=== PATIENT | female | born 1935 | race American Indian/Alaskan Native ===

== ENCOUNTER 2016-06-29 21:16 | Emergency (ER) | payer MEDICARE ==
--- NOTE | 2016-06-30 00:09 | Emergency Department Report ---
ED General Adult HPI - General Chief complaint: Nausea/Vomiting/Diarrhea Stated complaint: SORE THROAT Time Seen by Provider: 06/29/16 23:46 Source: patient, EMS, RN notes reviewed, old records reviewed Mode of arrival: Stretcher Limitations: Altered Mental Status, Physical Limitation - History of Present Illness Initial comments: Patient is a 81-year-old female with history of hypertension, diabetes, end- stage renal disease on dialysis Tuesday with last dialysis on Tuesday presenting today because of nausea vomiting. Patient states it started at 4 PM soon after eating doesn't had multiple bouts of nonbloody nonbilious emesis. Did have some blood tinged emesis towards the end. Had no associated abdominal pain, diarrhea but did have some nasal congestion and sore throat. No associated fevers or chills. Severity scale (0 -10): 0 - Related Data Home Medications Medication Instructions Recorded Confirmed Last Taken Apixaban [Eliquis] 5 mg PO DAILY 04/20/16 06/29/16 06/29/16 Carvedilol 6.25 mg PO BID 04/20/16 06/29/16 06/29/16 Cinacalcet HCl [Sensipar] 30 mg PO DAILY 04/20/16 06/29/16 06/29/16 Clopidogrel Bisulfate [Clopidogrel] 75 mg PO DAILY 04/20/16 06/29/16 06/29/16 Gabapentin [Neurontin] 300 mg PO DAILY 04/20/16 06/29/16 06/29/16 Insulin Glargine [Lantus VIAL] 15 units SC DAILY 04/20/16 06/29/16 06/29/16 Metoprolol Tartrate 25 mg PO DAILY 04/20/16 06/29/16 06/29/16 Simvastatin 40 mg PO QHS 04/20/16 06/29/16 06/29/16 Vitamin B Comp and C/FA/Zn Cit 1 tab PO DAILY 04/20/16 06/29/16 06/29/16 [Dialyvite 800-Zinc 15 mg Tab] Sitagliptin Phosphate [Januvia] 25 mg PO QDAY 05/20/16 06/29/16 06/29/16 oxyCODONE 5 mg PO PRN 05/24/16 06/29/16 06/29/16 Previous Rx's Medication Instructions Recorded Last Taken Type HYDROcodone/APAP 7.5-325 [Badin 1 each PO Q6HR PRN #60 tablet 06/04/16 06/29/16 Rx 7.5/325] Lisinopril [Zestril TAB] 2.5 mg PO QDAY #30 tab 06/04/16 06/29/16 Rx Allergies Allergy/AdvReac Type Severity Reaction Status Date / Time No Known Allergies Allergy Verified 06/20/16 19:58 ED Review of Systems ROS: Stated complaint: SORE THROAT Other details as noted in HPI Comment: All other systems reviewed and negative Constitutional: denies: chills, fever ENT: congestion Respiratory: denies: shortness of breath Cardiovascular: denies: chest pain Gastrointestinal: nausea, vomiting. denies: abdominal pain Skin: denies: rash Neurological: denies: headache, weakness ED Past Medical Hx - Past Medical History Previous Medical History?: Yes Hx Hypertension: Yes (CHF) Hx Heart Attack/AMI: Yes (2005. 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, hypercholesterolemia, chronic pain - Surgical History Past Surgical History?: Yes Hx Coronary Stent: Yes (3 stents, PTCA) Hx Pacemaker: No - Social History Smoking Status: Unknown if ever smoked Substance Use Type: Non Opiate Pain, Prescribed - Medications Home Medications: Home Medications Medication Instructions Recorded Confirmed Last Taken Type Apixaban [Eliquis] 5 mg PO DAILY 04/20/16 06/29/16 06/29/16 History Carvedilol 6.25 mg PO BID 04/20/16 06/29/16 06/29/16 History Cinacalcet HCl [Sensipar] 30 mg PO DAILY 04/20/16 06/29/16 06/29/16 History Clopidogrel Bisulfate [Clopidogrel] 75 mg PO DAILY 04/20/16 06/29/16 06/29/16 History Gabapentin [Neurontin] 300 mg PO DAILY 04/20/16 06/29/16 06/29/16 History Insulin Glargine [Lantus VIAL] 15 units SC DAILY 04/20/16 06/29/16 06/29/16 History Metoprolol Tartrate 25 mg PO DAILY 04/20/16 06/29/16 06/29/16 History Simvastatin 40 mg PO QHS 04/20/16 06/29/16 06/29/16 History Vitamin B Comp and C/FA/Zn Cit 1 tab PO DAILY 04/20/16 06/29/16 06/29/16 History [Dialyvite 800-Zinc 15 mg Tab] Sitagliptin Phosphate [Januvia] 25 mg PO QDAY 05/20/16 06/29/16 06/29/16 History oxyCODONE 5 mg PO PRN 05/24/16 06/29/16 06/29/16 History HYDROcodone/APAP 7.5-325 [Badin 1 each PO Q6HR PRN #60 tablet 06/04/16 06/29/16 06/29/16 Rx 7.5/325] Lisinopril [Zestril TAB] 2.5 mg PO QDAY #30 tab 06/04/16 06/29/16 06/29/16 Rx ED Physical Exam - General Limitations: No Limitations, Physical Limitation - Head Head exam: Present: atraumatic - Eye Eye exam: Present: normal appearance - ENT ENT exam: Present: normal exam, mucous membranes dry, other (pharyngeal erythema , no tonsillar exudates) - Respiratory Respiratory exam: Present: normal lung sounds bilaterally. Absent: respiratory distress - Cardiovascular Cardiovascular Exam: Present: regular rate - GI/Abdominal GI/Abdominal exam: Present: soft. Absent: distended, tenderness - Extremities Exam Extremities exam: Present: other (bilateral feet with multiple decubitus ulcers , appeared to be chronic, no signs of acute infection now significant tenderness , no discharge, no surrounding erythema, no fluctuance) - Neurological Exam Neurological exam: Present: alert - Psychiatric Psychiatric exam: Present: normal affect - Skin Skin exam: Absent: rash ED Course Vital Signs 06/29/16 06/29/16 06/30/16 23:23 23:25 02:26 Temperature 97.8 F 97.8 F Pulse Rate 100 H 100 H Respiratory 20 20 18 Rate Blood Pressure 147/70 Blood Pressure 147/70 [Left] O2 Sat by Pulse 100 100 Oximetry 06/30/16 02:52 Temperature 97.7 F Pulse Rate 89 Respiratory 18 Rate Blood Pressure Blood Pressure 142/80 [Left] O2 Sat by Pulse 100 Oximetry ED Medical Decision Making - Lab Data Result diagrams: 06/30/16 00:17 06/30/16 00:17 - Medical Decision Making Symptoms and exam are most consistent with gastritis versus viral syndrome, however given the patient's comorbidities will do lab work to rule out another etiology as well as EKG Chest x-ray shows no acute infiltrate, appears better than prior x-ray EKG shows sinus rhythm with first-degree AV block, no ST T changes, narrow QRS Labs show a elevated white count, this may be due to a viral infection as there is no clear bacterial infection, troponin is elevated however as the patient is on dialysis and the troponin is better than prior it is unlikely that the patient is developing new troponin elevation. Phosphate is elevated, however patient is expected to have dialysis later today which showed lower the phosphorus level. Hemoglobin is improved compared to prior lab that was during recent hospitalization. Patient is complaining of bilateral foot pain, however no clear new infection. Patient states that she had been treated on antibiotics and recently been stopped. States that this pain is chronic and has not changed. Given the only symptoms are rhinorrhea, vomiting, sore throat is suggestive of a viral syndrome. Patient's heart rate was reassessed at 2:10 AM and was 90. Well sent patient back to the longterm as she does not meet any criteria for admission to the hospital at this time. Critical care attestation.: If time is entered above; I have spent that time in minutes in the direct care of this critically ill patient, excluding procedure time. ED Disposition Clinical Impression: Vomiting Qualifiers: Vomiting type: unspecified Vomiting Intractability: non-intractable Nausea presence: without nausea Qualified Code(s): R11.11 - Vomiting without nausea Disposition: DC/TX ANOTHER TYPE HEALTHCARE Is pt being admited?: No Condition: Stable Instructions: Viral Syndrome (ED), Acute Nausea and Vomiting (ED) Additional Instructions: Please follow up with the primary care doctor. If symptoms significantly worsen the develop any new symptoms please return back to the hospital. Referrals: PRIMARY CARE, [Primary Care Provider] - 3-5 Days Time of Disposition: 02:23
[2016-06-30 00:31] LABS: Hematocrit 29.4 % (30.3-42.9); Hemoglobin 9.3 gm/dl (10.1-14.3); Mean Corpuscular HGB Conc 32 % (30-34); Mean Corpuscular Hemoglobin 29 pg (28-32); Mean Corpuscular Volume 92 fl (79-97); Platelet Count 223 K/mm3 (140-440); Red Blood Count 3.18 M/mm3 (3.65-5.03)
[2016-06-30 00:38] LABS: Red Cell Distribution Width 22.8 % (13.2-15.2)
[2016-06-30 00:54] LABS: BUN/Creatinine Ratio 7.27; Calcium 8.5 mg/dL (8.4-10.2); Chloride 92.4 mmol/L (98-107); Magnesium 2.2 mg/dL (1.7-2.3); Phosphorous 5.8 mg/dL (2.5-4.5)
[2016-06-30] MEDS ORDERED: TYLENOL PO ONE (02:13)
[2016-06-30 02:53] VITALS: BP 142/80
--- NOTE | 2016-06-30 09:41 | XRay Report ---
AP CHEST: HISTORY: Fever, leukocytosis. FINDINGS: Mild CHF or volume overload has resolved since 06/20/16. Cardiomegaly persists but the lungs are clear. There is no evidence for pneumonia or large pleural effusion. The bony structures are demineralized but intact. IMPRESSION: Cardiomegaly. Lungs clear.
== END 2016-06-30 03:31 | disposition other institution (70) ==
LOC: ED 21:16
DX: R11.11 Vomiting without nausea (principal); I25.2 Old myocardial infarction; I13.2 Hypertensive heart and chronic kidney disease with heart failure and with stage 5 chronic kidney disease, or end stage renal disease; E11.22 Type 2 diabetes mellitus with diabetic chronic kidney disease; N18.6 End stage renal disease; I50.9 Heart failure, unspecified; E11.40 Type 2 diabetes mellitus with diabetic neuropathy, unspecified; E78.00 Pure hypercholesterolemia, unspecified; G89.29 Other chronic pain; Z79.4 Long term (current) use of insulin; Z99.2 Dependence on renal dialysis
CPT/HCPCS: 36415; 71010; 80048; 80061; 83735; 84100; 84484; 85027; 93005; 93010

== ENCOUNTER 2016-07-26 08:04 | Inpatient (IN) | payer MEDICARE ==
[2016-07-26] MEDS ORDERED: KEPPRA 1,000 MG/NS 0.75% 100ML 1,000 MG/100 ML BAG IV ONE ×2 (09:27→09:29)
[2016-07-26 09:32] LABS: Basophils % (Auto) 0.6 % (0.0-1.8); Eosinophils % (Auto) 2.4 % (0.0-4.3); Hematocrit 32.1 % (30.3-42.9); Hemoglobin 9.8 gm/dl (10.1-14.3); Mean Corpuscular HGB Conc 31 % (30-34); Mean Corpuscular Hemoglobin 27 pg (28-32); Mean Corpuscular Volume 89 fl (79-97); Platelet Count 258 K/mm3 (140-440); Red Blood Count 3.59 M/mm3 (3.65-5.03); White Blood Count 15.9 K/mm3 (4.5-11.0)
[2016-07-26 09:37] LABS: Red Cell Distribution Width 20.2 % (13.2-15.2)
[2016-07-26 09:54] LABS: Alanine Aminotransferase 12 units/L (7-56); Albumin 3.4 g/dL (3.9-5); Albumin/Globulin Ratio 0.9 %; Alkaline Phosphatase 79 units/L (35-129); Anion Gap 22 mmol/L; BUN/Creatinine Ratio 6.85; Bilirubin,Total 0.5 mg/dL (0.1-1.2); Blood Urea Nitrogen 37 mg/dL (7-17); Calcium 11.6 mg/dL (8.4-10.2); Carbon Dioxide 28 mmol/L (22-30); Chloride 87.2 mmol/L (98-107); Glucose 112 mg/dL (65-100); Magnesium 2.3 mg/dL (1.7-2.3); Potassium 5.3 mmol/L (3.6-5.0); Sodium 132 mmol/L (137-145); Total Protein 7.3 g/dL (6.3-8.2)
[2016-07-26] MEDS ORDERED: ATIVAN ONE (09:55)
[2016-07-26] MEDS ORDERED: ATIVAN IV ONE (09:55)
--- NOTE | 2016-07-26 09:55 | Emergency Department Report ---
HPI - General Chief Complaint: Altered Mental Status Time Seen by Provider: 07/26/16 09:27 - HPI HPI: Chief complaint: Altered mental status HPI: Patient is a 81-year-old female resident of the [facility] and has a history of end-stage renal disease on hemodialysis, congestive heart failure, severe atherosclerosis status post bypass surgery 2 coronary arteries as well as coronary artery stents and stenting to her lower extremities. Patient has severe peripheral vascular disease with chronic ulcerations and necrosis to her feet. Patient is type II diabetic with a history of hypertension. Patient has had a history of CVA but no known history of seizures. According to [facility] patient was acutely altered this morning. After her arrival to the emergency department the nursing staff noticed some focal seizure-like activity in her left upper extremity. Patient is unable to contribute at all to the history as she is unresponsive. Patient's last dialysis was on Tuesday and she was due for dialysis today. Patient had a fentanyl patch on which was removed by EMS. Mode of arrival: EMS Source: The nursing notes, old chart and notes from the [facility] Began: Unclear Unable to elicit any further information from the patient ED Past Medical Hx - Past Medical History Previous Medical History?: Yes Hx Hypertension: Yes (CHF) Hx Heart Attack/AMI: Yes (2005. 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, hypercholesterolemia, chronic pain - Surgical History Hx Coronary Stent: Yes (3 stents, PTCA) Hx Pacemaker: No - Social History Smoking Status: Unknown if ever smoked - Medications Home Medications: Home Medications Medication Instructions Recorded Confirmed Last Taken Type Apixaban [Eliquis] 5 mg PO DAILY 04/20/16 06/29/16 06/29/16 History Carvedilol 6.25 mg PO BID 04/20/16 06/29/16 06/29/16 History Cinacalcet HCl [Sensipar] 30 mg PO DAILY 04/20/16 06/29/16 06/29/16 History Clopidogrel Bisulfate [Clopidogrel] 75 mg PO DAILY 04/20/16 06/29/16 06/29/16 History Gabapentin [Neurontin] 300 mg PO DAILY 04/20/16 06/29/16 06/29/16 History Insulin Glargine [Lantus VIAL] 15 units SC DAILY 04/20/16 06/29/16 06/29/16 History Metoprolol Tartrate 25 mg PO DAILY 04/20/16 06/29/16 06/29/16 History Simvastatin 40 mg PO QHS 04/20/16 06/29/16 06/29/16 History Vitamin B Comp and C/FA/Zn Cit 1 tab PO DAILY 04/20/16 06/29/16 06/29/16 History [Dialyvite 800-Zinc 15 mg Tab] Sitagliptin Phosphate [Januvia] 25 mg PO QDAY 05/20/16 06/29/16 06/29/16 History oxyCODONE 5 mg PO PRN 05/24/16 06/29/16 06/29/16 History HYDROcodone/APAP 7.5-325 [[place] 1 each PO Q6HR PRN #60 tablet 06/04/16 06/29/16 06/29/16 Rx 7.5/325] Lisinopril [Zestril TAB] 2.5 mg PO QDAY #30 tab 06/04/16 06/29/16 06/29/16 Rx ED Review of Systems ROS: Stated complaint: AMS Other details as noted in HPI Comment: Unobtainable due to pts medical conditions (patient unresponsive) Physical Exam - Physical Exam Vital Signs: Vital Signs 07/26/16 08:33 Temperature 98 F Pulse Rate 89 Respiratory 17 Rate Blood Pressure 121/49 O2 Sat by Pulse 91 Oximetry Physical Exam: GENERAL: The patient is an elderly chronically ill-appearing -[place] female who is unresponsive. HEENT: Normocephalic. Atraumatic. Patient has moist mucous membranes. NECK: Supple. No meningitic signs are noted. There is no adenopathy noted. CHEST/LUNGS: Bilateral congestion. There is no respiratory distress noted. HEART/CARDIOVASCULAR: Regular. There is no tachycardia. There is no gallop rub or murmur. ABDOMEN: Abdomen is soft, nontender. Patient has normal bowel sounds. There is no abdominal distention. SKIN: Patient has dressings to her bilateral lower legs and heels which were not removed. Left great toe is necrotic and appears chronic. Patient also has a dressing to her left ng. NEURO: The patient's eyes are open and she blinks to perceived threat but does not respond to verbal or tactile stimulation. Patient's left arm is having intermittent involuntary spasms that could quite possibly be focal seizure activity. There is no eye deviation noted. MUSCULOSKELETAL: Chronic peripheral vascular disease changes with necrosis to the left great toe. ED Course Vital Signs 07/26/16 08:33 Temperature 98 F Pulse Rate 89 Respiratory 17 Rate Blood Pressure 121/49 O2 Sat by Pulse 91 Oximetry - Reevaluation(s) Reevaluation #1: 07/26/16 09:56 Patient given 1 g of Keppra and awaiting CT results. 07/26/16 patient was given 1 mg IV Ativan and seizures stopped. 07/26/[address] Chahal who will arrange for dialysis. ED Medical Decision Making - Lab Data Result diagrams: 07/26/16 08:39 07/26/16 08:39 Laboratory Tests 07/26/16 08:39 Calcium 11.6 H Albumin 3.4 L - EKG Data -: EKG Interpreted by Me EKG shows normal: sinus rhythm (with a first-degree AV block) Rate: normal (88) - EKG Data When compared to previous EKG there are: no significant change Interpretation: no acute changes, other (left anterior fascicular block) - Radiology Data Radiology results: report reviewed (chest x-ray shows cardiomegaly and congestive heart failure.) Critical care attestation.: If time is entered above; I have spent that time in minutes in the direct care of this critically ill patient, excluding procedure time. ED Disposition Clinical Impression: Acute on chronic systolic CHF (congestive heart failure), Acute on chronic renal failure, Hyperkalemia, New onset seizure Disposition: OP ADMITTED IP TO THIS HOSP Is pt being admited?: Yes Does the pt Need Aspirin: Yes Condition: Serious Referrals: PRIMARY CARE,MD [Primary Care Provider] - 3-5 Days Time of Disposition: 11:35 (admit to the hospitalist)
--- NOTE | 2016-07-26 10:02 | XRay Report ---
PORTABLE CHEST INDICATION: Nonproductive cough. COMPARISON: 06/30/2016 FINDINGS: Portable, frontal chest radiograph again demonstrates mild to moderate cardiomegaly, dense aortic atherosclerotic calcifications, left distal subclavian/axillary stents and demineralized bones with few degenerative changes. Mild increased congestive pulmonary haziness now suspected, more so in the right upper lobe/suprahilar as also towards the lung bases with subtle bilateral pleural effusions partly obscuring the hemidiaphragms. EKG leads. CONCLUSION: Interval radiographic worsening with CHF suspected, as described. Few other stable findings, as above. Please correlate. Thank you for the opportunity to participate in this patient's care.
--- NOTE | 2016-07-26 10:24 | Cat Scan Report ---
CT HEAD WITHOUT CONTRAST: HISTORY: Altered mental status. No comparison. Mild diffuse volume loss and mild nonspecific chronic white matter changes are identified. A chronic focal infarct in the left arias radiata measures 1.3 x 0.3 cm in axial plane. There is a second area of decreased attenuation in the right occipital lobe measuring 1.9 x 1.1 cm in axial plane consistent with a chronic cortical infarct. There is no evidence for hemorrhage, mass, hydrocephalus or extra-axial fluid collection. The mastoid air cells and visualized portions of the sinuses are normal. IMPRESSION: No acute process identified. Chronic findings as outlined above. If further evaluation is needed, MRI could be obtained.
--- NOTE | 2016-07-26 10:35 | Admit Criteria Form ---
Admission Criteria Documentation: HEART FAILURE Clinical Indications for Admission to Inpatient Care (Place 'X' for any and all applicable criteria): Admission is indicated by ANY ONE of the following(1)(2)(3)(4): [ ]I. Severe electrolyte abnormalities requiring inpatient care(9) [ ]II. Hemodynamic instability [ ]III. Anasarca [ ]IV. Acute cardiac ischemia causing or associated with failure (Also use Angina or Myocardial Infarction as appropriate) [ ]V. Cardiac arrhythmias of immediate concern [ ]. Precipitating cause for acute decompensation (eg, pneumonia, pulmonary embolism) requires inpatient care [ ]VII. Pulmonary edema that is very severe (eg, mechanical ventilation needed, imminent or likely, need for 100% oxygen to keep oxygen saturation above 90%) [X]VIII. Inpatient admission required rather than observation care (Also use Heart Failure: Observation Care as appropriate) because of ANY ONE of the following: [ ]a) Pulmonary edema that is severe or worsening as indicated by ALL of the following: [ ]i) New need for oxygen therapy to keep oxygen saturation above 90% (or increased FiO2 need from baseline) [ ]ii) Has not improved sufficiently with emergency department or observation care IV diuretics or other heart failure treatments[C] [ ]b) Cognitive impairment that is severe or persistent [ ]c) Increased creatinine (new on laboratory test) with reduction of more than 50% in estimated glomerular filtration rate from baseline. [ ]d) Acute renal insufficiency (progressively (ongoing) rising creatinine (known from past laboratory test) with reduction of more than 25% in estimated glomerular filtration rate from baseline) [ ]e) Acute peripheral ischemia (eg, pulseless, cool, mottled, or cyanotic extremity) [ ]f) Acute renal failure [X]g) Supplemental O2 or respiratory treatment for >24 hr that are performable only in acute inpatient setting [ ]h) Pulmonary artery catheter monitoring [X]i) Other condition, treatment or monitoring requiring inpatient admission [ ]IX. Contraindications and/or Inappropriate clinical situations for Observational Care in patients with Heart Failure, when ANY ONE of the following is required: [ ]a) Patient with High risk of cardiac embolism (e.g, patients with previous cardiac embolism, LVEF < 40%, age >75 and patients with prosthetic valve) 18 [ ]b) Patient with Moderate risk including DM patient, CAD and patient aged 65-75 [ ]c) Patient with any change in cardiac biomarker especially troponin should be managed as high risk in an inpatient setting 19 [ ]d) Physician judgement irrespective of ECG and other diagnostic findings 20 [ ]e) Patients with hyponatremia have high risk for mortality and require more extensive care and length of stay 21 [ ]f) Need for large volume diuresis 21 [ ]g) Presence of renal insufficiency or hypotension limiting speed of diuresis 21 [ ]h) Acute cardiac Ischemia in the elderly 21 [ ]i) Patients with a 30 day risk of mortality based on a multidimensional prognostic index (MPI) [J,]21 [ ]X. General contraindications and/or Inappropriate clinical situations for Observational Care in patients with Heart Failure, when ANY ONE of the following is required: [ ]a) Prediction of prolongation of LOS based on ANY ONE of the following may be considered as a contraindication for observational care 2, 3, 4, 5, 6, 7, 8 , 9, 10, 11 [ ]i) Age > 65 yrs. [ ]ii) Patient arriving by ambulance [ ]iii) Patient with high acuity [ ]iv) Patient requiring vital sign monitoring [ ]v) Patient on IV medication [ ]b) Systolic blood pressures 180mmHg 3,12 [ ]c) Patient with altered mental status including delirium and other alteration of consciousness, (3) [ ]d) Patient whose discharge disposition will be to a senior living home or rehabilitation home should not be managed in Emergency Department Observation Unit. CMS rule requires 3 days hospital stay before such placement.3,13 [ ]e) Patient with failure to thrive due to broad array of etiologies 3,16,17 [ ]f) Inability to ambulate 3,14 Extended stay beyond goal length of stay may be needed for(1)(3)(21)(25): [ ]a) Cardiac ischemia, confirmed or suspected as precipitant [ ]b) Cardiogenic shock or refractory pulmonary edema [ ]c) Acute kidney injury or renal failure [ ]d) Respiratory failure (eg, need for noninvasive or invasive mechanical ventilation) (23) [ ]e) Concomitant pneumonia or significant electrolyte abnormality (eg, severe hyponatremia) [ ]f) Newly diagnosed (new onset) atrial fibrillation [ ]g) Stage IV chronic kidney disease (estimated glomerular filtration rate of less than 30 mL/min/1.73m2 (0.50 mL/sec/1.73m2), and not previously on chronic dialysis The original [facility] content created by [facility] has been revised. The portions of the content which have been revised are identified through the use of italic text or in bold, and [facility] has neither reviewed nor approved the modified material. All other unmodified content is copyright [facility]. Please see references footnoted in the original [facility] edition 2016 Admission Criteria Met: Yes
--- NOTE | 2016-07-26 12:12 | Consultation ---
History of Present Illness - Reason for Consult Consult date: 07/26/16 end stage renal disease, hyperkalemia - History of Present Illness patient with h/o ESRD on HD every MWF, last treatment is unknown, she is poor historian, history obtained from chart, she was sent from SNF for altered mental status with possible focal seizure upon arrival to ED. CXR was significant for congestion and currently on O2 supplement. renal consult was requested for HD management Past History Past Medical History: diabetes, dialysis, ESRD, hypertension, renal failure Medications and Allergies Allergies Allergy/AdvReac Type Severity Reaction Status Date / Time No Known Allergies Allergy Verified 06/20/16 19:58 Home Medications Medication Instructions Recorded Confirmed Last Taken Type Apixaban [Eliquis] 5 mg PO DAILY 04/20/16 06/29/16 06/29/16 History Carvedilol 6.25 mg PO BID 04/20/16 06/29/16 06/29/16 History Cinacalcet HCl [Sensipar] 30 mg PO DAILY 04/20/16 06/29/16 06/29/16 History Clopidogrel Bisulfate [Clopidogrel] 75 mg PO DAILY 04/20/16 06/29/16 06/29/16 History Gabapentin [Neurontin] 300 mg PO DAILY 04/20/16 06/29/16 06/29/16 History Insulin Glargine [Lantus VIAL] 15 units SC DAILY 04/20/16 06/29/16 06/29/16 History Metoprolol Tartrate 25 mg PO DAILY 04/20/16 06/29/16 06/29/16 History Simvastatin 40 mg PO QHS 04/20/16 06/29/16 06/29/16 History Vitamin B Comp and C/FA/Zn Cit 1 tab PO DAILY 04/20/16 06/29/16 06/29/16 History [Dialyvite 800-Zinc 15 mg Tab] Sitagliptin Phosphate [Januvia] 25 mg PO QDAY 05/20/16 06/29/16 06/29/16 History oxyCODONE 5 mg PO PRN 05/24/16 06/29/16 06/29/16 History HYDROcodone/APAP 7.5-325 [[place] 1 each PO Q6HR PRN #60 tablet 06/04/16 06/29/16 06/29/16 Rx 7.5/325] Lisinopril [Zestril TAB] 2.5 mg PO QDAY #30 tab 06/04/16 06/29/16 06/29/16 Rx Review of Systems ROS unobtainable: due to mental status Exam - Vital Signs Vital signs: Vital Signs Pulse Ox 95 07/26/16 08:28 - General Appearance General appearance: cachectic EENT: ATNC, PERRL, mucous membranes dry Neck: Present: neck supple Respiratory: Rales, [place] Heart: regular, S1S2 Gastrointestinal: Present: normoactive bowel sounds. Absent: tenderness, distended, masses Integumentary: no rash, warm and dry Neurologic: other (does not follow commands) Musculoskeletal: Present: other (no edema in BLE, R AVF with + thrill and bruit) Psychiatric: other (does not answer questions) Results - Lab Results 07/26/16 08:39 07/26/16 08:39 Most recent lab results Calcium 11.6 mg/dL (8.4-10.2) H 07/26/16 08:39 Magnesium 2.3 mg/dL (1.7-2.3) 07/26/16 08:39 Assessment and Plan - Patient Problems (1) ESRD (end stage renal disease) on dialysis Current Visit: No Status: Acute Plan to address problem: HD today for clearance and volume removal UF goal 3-4 L as tolerated will assess HD needs daily strict I&O daily weights renally dose meds (2) Altered mental status Current Visit: Yes Status: Acute Qualifiers: Altered mental status type: A Coma depth: C Coma timing: C Plan to address problem: CT head was negative for acute process on IV keppra (3) Hypo-osmolality and hyponatremia Current Visit: Yes Status: Acute Plan to address problem: secondary to renal failure and volume overload HD as above fluid restriction 1000 cc/day (4) Anemia in chronic kidney disease (CKD) Current Visit: No Status: Acute Plan to address problem: no indication for transfusion will check iron panel in AM (5) Hyperkalemia Current Visit: No Status: Acute Plan to address problem: HD as above
--- NOTE | 2016-07-26 12:16 | History and Physical Report ---
History of Present Illness Date of examination: 07/26/16 Date of admission: 07/26/16 Chief complaint: AMS History of present illness: The Patient is a 81-year-old [facility] with multiple medical problem was acutely noted to be altered this morning. After her arrival to the emergency department the nursing staff noticed some focal seizure -like activity in her left upper extremity. Patient is unable to contribute at all to the history as she is unresponsive. Patient's last dialysis was on Tuesday and she was due for dialysis today. Patient had a fentanyl patch on which was removed by EMS. In the ER CT head was unremarkable, given 1000mg of keppra. She will be admitted for further evaluation. Past medical History: h/o ESRD on Dialysis MWF, CHF, DM2, chf, MD s/p stent on 2005 and 2007, diabetic neuropathy, PVD, h/o CVA, CAD. Past surgical History: s/p PTCA on 2005 and 2007, CABG Social History: Lives at [facility], no h/o smoking, drinking and elicit drug abuse. Family History: Significant for CAD (mother), hypertension (Mother). Medications and Allergies Allergies Allergy/AdvReac Type Severity Reaction Status Date / Time No Known Allergies Allergy Verified 06/20/16 19:58 Home Medications Medication Instructions Recorded Confirmed Last Taken Type Apixaban [Eliquis] 5 mg PO DAILY 04/20/16 06/29/16 06/29/16 History Carvedilol 6.25 mg PO BID 04/20/16 06/29/16 06/29/16 History Cinacalcet HCl [Sensipar] 30 mg PO DAILY 04/20/16 06/29/16 06/29/16 History Clopidogrel Bisulfate [Clopidogrel] 75 mg PO DAILY 04/20/16 06/29/16 06/29/16 History Gabapentin [Neurontin] 300 mg PO DAILY 04/20/16 06/29/16 06/29/16 History Insulin Glargine [Lantus VIAL] 15 units SC DAILY 04/20/16 06/29/16 06/29/16 History Metoprolol Tartrate 25 mg PO DAILY 04/20/16 06/29/16 06/29/16 History Simvastatin 40 mg PO QHS 04/20/16 06/29/16 06/29/16 History Vitamin B Comp and C/FA/Zn Cit 1 tab PO DAILY 04/20/16 06/29/16 06/29/16 History [Dialyvite 800-Zinc 15 mg Tab] Sitagliptin Phosphate [Januvia] 25 mg PO QDAY 05/20/16 06/29/16 06/29/16 History oxyCODONE 5 mg PO PRN 05/24/16 06/29/16 06/29/16 History HYDROcodone/APAP 7.5-325 [[place] 1 each PO Q6HR PRN #60 tablet 06/04/16 06/29/16 06/29/16 Rx 7.5/325] Lisinopril [Zestril TAB] 2.5 mg PO QDAY #30 tab 06/04/16 06/29/16 06/29/16 Rx Review of Systems ROS unobtainable: due to mental status Exam - Physical Exam Narrative exam: GENERAL: This is an elderly female lying on bed appeared to be in no discomfort. HEENT: Normocephalic. Atraumatic. Extraocular motions are intact. No conjunctival congestion or icterus. Patient has dry mucous membranes. External auditory canal and nares patent bilaterally. NECK: Supple. Trachea midline. No JVD, thyromagaly or lymphadenopathy. CHEST/LUNGS: Clear to auscultated bilaterally. There is no respiratory distress noted, breathing nonlabored. No wheezes crackles or rhonchi. HEART/CARDIOVASCULAR: Regular in rate and rhythm. PMI at the apex. There is no gallop rub or murmur. ABDOMEN: Abdomen is soft, nontender. Patient has normal bowel sounds. There is no abdominal distention. No organomagaly or rigidity. SKIN: There is no rash, no erythrema. There is no diaphoresis. Warm and dry. NEUROLOGY: The patient is nonverbal, does not follow commend MUSCULOSKELETAL: No joint effusion or tenderness. EXTRIMITY: left foot with chronic foot ulcer with great toe skin discoloration PSYCH: No depression or anxiety noted. Cooperative. - Constitutional Vitals: Temp Pulse Resp BP Pulse Ox 98 F 88 15 109/55 100 07/26/16 08:33 07/26/16 10:30 07/26/16 10:30 07/26/16 10:30 07/26/16 10:30 Results - Labs CBC & Chem 7: 07/28/16 04:54 07/28/16 04:54 Labs: Laboratory Last Values WBC 15.9 K/mm3 (4.5-11.0) H 07/26/16 08:39 RBC 3.59 M/mm3 (3.65-5.03) L 07/26/16 08:39 Hgb 9.8 gm/dl (10.1-14.3) L 07/26/16 08:39 Hct 32.1 % (30.3-42.9) 07/26/16 08:39 MCV 89 fl (79-97) 07/26/16 08:39 MCH 27 pg (28-32) L 07/26/16 08:39 MCHC 31 % (30-34) 07/26/16 08:39 RDW 20.2 % (13.2-15.2) H 07/26/16 08:39 Plt Count 258 K/mm3 (140-440) 07/26/16 08:39 Lymph % (Auto) 4.6 % (13.4-35.0) L 07/26/16 08:39 [place] % (Auto) 6.3 % (0.0-7.3) 07/26/16 08:39 Eos % (Auto) 2.4 % (0.0-4.3) 07/26/16 08:39 Baso % (Auto) 0.6 % (0.0-1.8) 07/26/16 08:39 Lymph # 0.7 K/mm3 (1.2-5.4) L 07/26/16 08:39 [place] # 1.0 K/mm3 (0.0-0.8) H 07/26/16 08:39 Eos # 0.4 K/mm3 (0.0-0.4) 07/26/16 08:39 Baso # 0.1 K/mm3 (0.0-0.1) 07/26/16 08:39 Seg Neutrophils % 86.1 % (40.0-70.0) H 07/26/16 08:39 Seg Neutrophils # 13.7 K/mm3 (1.8-7.7) H 07/26/16 08:39 Sodium 132 mmol/L (137-145) L 07/26/16 08:39 Potassium 5.3 mmol/L (3.6-5.0) H 07/26/16 08:39 Chloride 87.2 mmol/L (98-107) L 07/26/16 08:39 Carbon Dioxide 28 mmol/L (22-30) 07/26/16 08:39 Anion Gap 22 mmol/L 07/26/16 08:39 BUN 37 mg/dL (7-17) H 07/26/16 08:39 Creatinine 5.4 mg/dL (0.7-1.2) H 07/26/16 08:39 Estimated GFR 9 ml/min 07/26/16 08:39 BUN/Creatinine Ratio 6.85 % 07/26/16 08:39 Glucose 112 mg/dL (65-100) H 07/26/16 08:39 Lactic Acid 1.0 mmol/L (0.7-2.0) 07/26/16 Unknown Calcium 11.6 mg/dL (8.4-10.2) H 07/26/16 08:39 Magnesium 2.3 mg/dL (1.7-2.3) 07/26/16 08:39 Total Bilirubin 0.5 mg/dL (0.1-1.2) 07/26/16 08:39 AST 15 units/L (5-40) 07/26/16 08:39 ALT 12 units/L (7-56) 07/26/16 08:39 Alkaline Phosphatase 79 units/L (35-129) 07/26/16 08:39 NT-Pro-B Natriuret Pep > 48027 pg/mL (0-900) H 07/26/16 08:39 Total Protein 7.3 g/dL (6.3-8.2) 07/26/16 08:39 Albumin 3.4 g/dL (3.9-5) L 07/26/16 08:39 Albumin/Globulin Ratio 0.9 % 07/26/16 08:39 TSH 3.580 mlU/mL (0.270-4.200) 07/26/16 Unknown - Imaging and Cardiology CT scan - chest: report reviewed CT Scan - head: report reviewed Assessment and Plan Assessment and plan: New onset seizure Acute encephalopathy likely due to postictal stage End stage renal disease on dialysis CHF with EF 10% to 15% CAD s/p stent placement Leukocytosis likely stress induced Hyperkalemia likely due to end-stage renal disease DM type 2 HTN, benign essential Chronic foot ulcer with h/o PVD Plan; Admit to medicine Placed on IV Keppra and when necessary Ativan for seizure Resume home meds Consult neurology Consult nephrology for dialysis Supportive care, wound care consult Frequent neurologic exam GI and DVT prophylaxis It took me about 45 minutes for initial care of this patient including history and physical, reviewing initial lab results and ER documents, placing admission orders, bedside counseling and coordination of care. Advance Directives: Yes VTE prophylaxis?: Chemical
[2016-07-26] MEDS ORDERED: ATIVAN IV PRN (12:24)
[2016-07-26] MEDS ORDERED: ZOFRAN IV PRN (12:24)
[2016-07-26] MEDS ORDERED: DULCOLAX PR PRN (12:24)
[2016-07-26] MEDS ORDERED: D50W (25GM) IV PRN (12:24)
[2016-07-26] MEDS ORDERED: MORPHINE IV PRN (12:24)
[2016-07-26] MEDS ORDERED: TYLENOL PO PRN (12:24)
[2016-07-26] MEDS ORDERED: ELIQUIS PO SCH (13:00)
[2016-07-26 13:31] LABS: INR 1.61 (0.87-1.13)
[2016-07-26] MEDS: DUONEB 0.5 MG-3 MG/3 ML SOLN IH SCH ×2 (14:43→22:37)
[2016-07-26] MEDS ORDERED: NACL 0.9 (PRIMING MACHINE ONLY DIALYSIS) MC ONE (18:32)
[2016-07-26] MEDS: COLACE PO SCH (22:10)
[2016-07-26] MEDS: COREG PO SCH (22:11)
[2016-07-26] MEDS: ZOCOR PO SCH (22:11)
[2016-07-26] MEDS: ELIQUIS PO SCH (22:11)
[2016-07-27] MEDS: DUONEB 0.5 MG-3 MG/3 ML SOLN IH SCH ×4 (02:06→20:02)
[2016-07-27 07:20] LABS: Basophils % (Auto) 0.6 % (0.0-1.8); Eosinophils % (Auto) 2.1 % (0.0-4.3); Hematocrit 32.5 % (30.3-42.9); Hemoglobin 10.1 gm/dl (10.1-14.3); Mean Corpuscular HGB Conc 31 % (30-34); Mean Corpuscular Hemoglobin 27 pg (28-32); Mean Corpuscular Volume 88 fl (79-97); Platelet Count 265 K/mm3 (140-440); Red Blood Count 3.68 M/mm3 (3.65-5.03); White Blood Count 14.3 K/mm3 (4.5-11.0)
[2016-07-27 07:21] LABS: Red Cell Distribution Width 20.4 % (13.2-15.2)
[2016-07-27 08:22] LABS: BUN/Creatinine Ratio 5.9; Calcium 11.2 mg/dL (8.4-10.2); Chloride 93.5 mmol/L (98-107); Potassium 4.6 mmol/L (3.6-5.0)
[2016-07-27] MEDS ORDERED: ZESTRIL PO SCH (10:00)
[2016-07-27] MEDS ORDERED: CINACALCET HCL 30 MG PO SCH (10:00)
[2016-07-27] MEDS ORDERED: NON-FORMULARY (Insulin Glargine 15 UNITS) SC SCH (10:00)
[2016-07-27] MEDS ORDERED: NON-FORMULARY (Lisinopril [Zestril Tab] 2.5 MG) PO SCH (10:00)
[2016-07-27] MEDS ORDERED: [UNRECOGNIZED DRUG - OTHER] PO SCH (10:00)
[2016-07-27] MEDS ORDERED: SITAGLIPTIN PHOSPHATE 25 MG PO SCH (10:00)
--- NOTE | 2016-07-27 10:21 | Progress Note ---
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 as iron level is noted to be 16 today- Start Venofer therapy with each HD session Fluid restriction of 1 liter per day Renally dose medications Strict I/O's monitoring Monitor electrolytes and replete as necessary Dialysis diet Obtain daily weights Assess dialysis needs daily (2) Anemia in chronic kidney disease (CKD) Current Visit: No Status: Chronic Plan to address problem: Epogen as appropriate with HD Iron Deficiency-start IV Venofer 100 mg with each HD session x 10 sessions (3) New onset seizure Current Visit: Yes Status: Acute Plan to address problem: On IV Keppra as per Primary team Neurology consulted (4) Hypertensive chronic kidney disease with stage 5 chronic kidney disease or end stage renal disease Current Visit: No Status: Chronic Plan to address problem: Blood pressures are controlled Subjective Date of service: 07/27/16 Principal diagnosis: ESRD Interval history: Patient seen lying in bed with altered mentation. Opens eyes and mumbles. Wound care nurse at bedside. Objective - Vital Signs Vital signs: Vital Signs - 12hr 07/27/16 07/27/16 07/27/16 00:00 04:00 07:34 Temperature 98.1 F 98.3 F Pulse Rate [ 96 H Anterior Bilateral Throughout] Pulse Rate [ 93 H 97 H Right] Respiratory 118 H 18 Rate Respiratory 20 Rate [Anterior Bilateral Throughout] Blood Pressure 154/73 155/66 [Right Arm] O2 Sat by Pulse 97 97 Oximetry 07/27/16 08:00 Temperature 100 F H Pulse Rate [ Anterior Bilateral Throughout] Pulse Rate [ 97 H Right] Respiratory 20 Rate Respiratory Rate [Anterior Bilateral Throughout] Blood Pressure 123/67 [Right Arm] O2 Sat by Pulse 100 Oximetry - General Appearance General appearance: appears stated age, chronically ill EENT: ATNC, PERRL Neck: no JVD, supple Respiratory: Present: Decreased Breath Sounds Cardiology: regular, S1S2 Gastrointestinal: normoactive bowel sounds Integumentary: warm and dry Neurologic: confused, disoriented Musculoskeletal: other (Right AVF intact. Gangrenous wounds noted to bilateral lower extremities, covered with gauze) Psychiatric: other (altered) - Lab 07/27/16 06:35 07/27/16 06:35 Most recent lab results Calcium 11.2 mg/dL (8.4-10.2) H 07/27/16 06:35 Phosphorus 4.0 mg/dL (2.5-4.5) 07/27/16 06:35 Magnesium 2.3 mg/dL (1.7-2.3) 07/26/16 08:39
--- NOTE | 2016-07-27 10:35 | Consultation ---
History of Present Illness Consult date: 07/27/16 Requesting physician: AMARILIS HILLIARD Reason for Consult: seizure Chief complaint: AMS limits direct hx History of present illness: 81 YO F Hx stroke ? residual deficit resident of [place] on Plavix/Elaquis who p/w AMS on 07/26. Onset of sx is acute as she was found alerted but specifics are unclear. She was to receive HD on 07/26 AM and was found to have Fentanyl patch. Sx are apparently constant w/o aggravating, relieving or other temporal factors. She had a witnessed episode of LUE twitching movement w/o clear description ? Seizure and was given Ativan/LEV. Severity of sx is such to limit communication. Past History Past Medical History: diabetes, dialysis, ESRD, hypertension, renal failure Medications and Allergies Allergies Allergy/AdvReac Type Severity Reaction Status Date / Time No Known Allergies Allergy Verified 06/20/16 19:58 Home Medications Medication Instructions Recorded Confirmed Last Taken Type Apixaban [Eliquis] 5 mg PO DAILY 04/20/16 06/29/16 06/29/16 History Carvedilol 6.25 mg PO BID 04/20/16 06/29/16 06/29/16 History Cinacalcet HCl [Sensipar] 30 mg PO DAILY 04/20/16 06/29/16 06/29/16 History Clopidogrel Bisulfate [Clopidogrel] 75 mg PO DAILY 04/20/16 06/29/16 06/29/16 History Gabapentin [Neurontin] 300 mg PO DAILY 04/20/16 06/29/16 06/29/16 History Insulin Glargine [Lantus VIAL] 15 units SC DAILY 04/20/16 06/29/16 06/29/16 History Metoprolol Tartrate 25 mg PO DAILY 04/20/16 06/29/16 06/29/16 History Simvastatin 40 mg PO QHS 04/20/16 06/29/16 06/29/16 History Vitamin B Comp and C/FA/Zn Cit 1 tab PO DAILY 04/20/16 06/29/16 06/29/16 History [Dialyvite 800-Zinc 15 mg Tab] Sitagliptin Phosphate [Januvia] 25 mg PO QDAY 05/20/16 06/29/16 06/29/16 History oxyCODONE 5 mg PO PRN 05/24/16 06/29/16 06/29/16 History HYDROcodone/APAP 7.5-325 [[place] 1 each PO Q6HR PRN #60 tablet 06/04/16 06/29/16 06/29/16 Rx 7.5/325] Lisinopril [Zestril TAB] 2.5 mg PO QDAY #30 tab 06/04/16 06/29/16 06/29/16 Rx Active Meds: Active Medications Acetaminophen (Tylenol) 650 mg PO Q4H PRN PRN Reason: Pain MILD(1-3)/Fever >100.5/FALCON Albuterol/Ipratropium (Duoneb 0.5 Mg-3 Mg/3 Ml Soln) 1 ampul IH Q6HRT [facility] Last Admin: 07/27/16 07:34 Dose: 1 ampul Apixaban (Eliquis) 5 mg PO BID [facility] Last Admin: 07/26/16 22:11 Dose: Not Given Bisacodyl (Dulcolax) 10 mg GA QDAY PRN PRN Reason: Constipation unrelieved by MOM Carvedilol (Coreg) 6.25 mg PO BID [facility] Last Admin: 07/26/16 22:11 Dose: Not Given Cinacalcet (Sensipar) 30 mg PO QDAY [facility] Clopidogrel Bisulfate (Plavix) 75 mg PO DAILY [facility] Dextrose (D50w (25gm)) 50 ml IV PRN PRN PRN Reason: Hypoglycemia Docusate Sodium (Colace) 100 mg PO BID [facility] Last Admin: 07/26/16 22:10 Dose: Not Given Famotidine (Pepcid) 20 mg IV QDAY [facility] Gabapentin (Neurontin) 300 mg PO DAILY [facility] Levetiracetam 500 mg/ Dextrose 105 mls @ 400 mls/hr IV Q12HR [facility] Iron Sucrose 100 mg/ Sodium (Chloride) 55 mls @ 100 mls/hr IV BETH [facility] Stop: 08/06/16 11:32 Influenza Virus Vaccine Quadrival (Fluarix Quad [id number](36 Mos+)) 60 mcg IM .ONCE ONE Stop: 07/28/16 12:01 Insulin Detemir (Levemir) 15 units SUB-Q QDAY [facility] Linagliptin (Tradjenta) 5 mg PO QDAY [facility] Lorazepam (Ativan) 1 mg IV Q1H PRN PRN Reason: Seizures Morphine Sulfate (Morphine) 2 mg IV Q4H PRN PRN Reason: Pain, Moderate (4-6) Multivit/Ca Carb/B Cmplx/FA/Prenat (Renal Caps) 1 cap PO QDAY [facility] Ondansetron HCl (Zofran) 4 mg IV Q8H PRN PRN Reason: N/V unrelieved by Reglan Pneumococcal Polyvalent Vaccine (Pneumovax 23) 0.5 ml IM .ONCE ONE Stop: 07/28/16 12:01 Simvastatin (Zocor) 40 mg PO QHS [facility] Last Admin: 07/26/16 22:11 Dose: Not Given Review of Systems ROS unobtainable: due to mental status Physical Examination - Vital Signs Vital Signs: Vital Signs Pulse Ox 95 07/26/16 08:28 - Constitutional General appearance: chronically ill - EENT EENT: Present: ATNC, PERRL, mucous membranes dry, hearing intact - Respiratory Respiratory: Present: chest non-tender, no respiratory distress - Cardiovascular Cardiovascular: Present: regular rate Extremities: Present: no peripheral edema bilatateraly, no clubbing, cyanosis, no inflammation, no ischemia or petechiae - Gastrointestinal Gastrointestinal: Present: normoactive bowel sounds, non-distended - Integumentary Integumentary: Present: normal - Neurologic Cranial nerve examination: PERRL, EOMI, tongue midline, intact shoulder shrug, Intact Vestibulo-ocular r, intact corneal reflex, facial droop (on L) Speech examination: other (paucity of speech mumbled incomprehensible) Sensorimotor examination: hemiparesis (on L) Motor examination - right side: 4/5: biceps, triceps, wrist flexion, wrist extension, trucker, hip flexors, knee extensors, dorsiflexion, toe extension (EHL) , plantarflexion Motor examination - left side: 2/5: biceps, triceps, wrist flexion, wrist extension, trucker, hip flexors, knee extensors, dorsiflexion, toe extension (EHL) , plantarflexion Detailed sensory examination: intact Reflex and gait examination: intact Reflexes: 1+: ankle, bicep, knee, tricep - Musculoskeletal Musculoskeletal: Present: no fluid collection, no pain, normal range of motion - Psychiatric Psychiatric: Present: mood/affect appropriate. Absent: cooperative Results - Laboratory Findings CBC and BMP: 07/27/16 06:35 07/27/16 06:35 Abnormal Lab Findings: Abnormal Labs 07/26/16 07/26/16 07/27/16 12:55 Unknown 06:35 WBC 14.3 H MCH 27 L RDW 20.4 H Lymph % (Auto) 4.9 L [place] % (Auto) 7.7 H Lymph # 0.7 L [place] # 1.1 H Seg Neutrophils % 84.7 H Seg Neutrophils # 12.1 H PT 19.1 H INR 1.61 H Chloride BUN Creatinine Glucose Calcium Iron TIBC Ferritin Salicylates < 0.3 L 07/27/16 07/27/16 06:35 06:35 WBC MCH RDW Lymph % (Auto) [place] % (Auto) Lymph # [place] # Seg Neutrophils % Seg Neutrophils # PT INR Chloride 93.5 L BUN 26 H Creatinine 4.4 H Glucose 111 H Calcium 11.2 H Iron 16 L TIBC 144 L Ferritin 1108.0 H Salicylates Assessment and Plan 81 YO F Hx prior stroke unclear residual deficits resident of [place] on Elaquis/ Plavix who p/w AMS in setting of scheduled HD session for later in day and Fentanyl patch found on body but also c/b possible episode of LUE motor convulsive activity ? focal seizure. Neuro exam w/ encephalopathy and focal L face/arm > leg weakness but unclear if this is her baseline. I suspect toxic metabolic encephalopathy from hypoNa c/b possible provoked focal seizure. Plan and Recommendation: 1. Telemetry bed w/ Q4 hour neuro checks & Sz precautions 2. Brain imaging: MRI Brain +/- Ghassan Seizure Protocol 3. Labs: Serum/Urine Tox, UA/UCx, Electrolytes especially Na, Ca, Mg, and Glucose, TSH/Vit B12/Ammonia and correct as necessary 4. Cont Infectious work up/medical management for UTI, PNA, cellulitis, bacteremia, etc. 5. Avoid hyponatremia, hypo/hyper-calcemia, hypo/hyperglycemia, acidosis, hypoxia/hypoxemia, hypercarbia/hypercapnia 6. Avoid institution of any psychoactive medications (e.g. antihistamines, anticholinergics, BZD, hypnotics, opiates) as able unless low doses of low potency antipsychotic needed for behavioral issues complicating medical care 7. AED therapy: Continue Keppra @ 500mg BID 8. Avoid meds that can lower sz threshold e.g. Tramadol, fluroquinolones, carbapenems 9. Pt advised of [place] driving regulations: report date of presumed Seizure/ unexplained loss of consciousness/awareness spell to DMV, refrain from operating a motor vehicle for 6 months after this date, and avoid unsupervised activity particularly around water or heights
[2016-07-27] MEDS: PLAVIX PO SCH (15:06)
[2016-07-27] MEDS: SENSIPAR PO SCH (15:06)
[2016-07-27] MEDS: NEURONTIN PO SCH (15:06)
[2016-07-27] MEDS: PEPCID IV SCH (15:06)
[2016-07-27] MEDS: COLACE PO SCH ×2 (15:06→21:59)
[2016-07-27] MEDS: ELIQUIS PO SCH ×2 (15:06→22:00)
[2016-07-27] MEDS: LEVEMIR SUB-Q SCH (15:07)
[2016-07-27] MEDS: Renal Caps PO SCH (15:07)
[2016-07-27] MEDS: KEPPRA 500 MG in D5W 100 ML IV SCH ×2 (15:07→22:01)
[2016-07-27] MEDS: TRADJENTA PO SCH (15:07)
[2016-07-27] MEDS: COREG PO SCH ×2 (15:07→21:59)
--- NOTE | 2016-07-27 15:23 | Progress Note ---
Assessment and Plan Assessment and plan: New onset seizure Acute encephalopathy likely due to postictal stage End stage renal disease on dialysis CHF with EF 10% to 15% CAD s/p stent placement Leukocytosis likely due to left foot cellulitis Hyperkalemia likely due to end-stage renal disease DM type 2 on insulin left Chronic foot ulcer with cellulitis Plan; cont on IV Keppra and when necessary Ativan for seizure cont home meds, wound care, obtain LE arterial doppler Place on abx, follow culture subcu insulin and check fingerstick BG obtain MRI, EEG per neurology recommendation nephrology following for dialysis Supportive care Frequent neurologic exam GI and DVT prophylaxis History Interval history: Patient seen and examined. Medical records and medication list reviewed. No acute event overnight noted by the RN. Patient mental status improved but unable to provide any history Hospitalist Physical - Physical exam Narrative exam: GGENERAL: This is an elderly female lying on bed appeared to be in no discomfort. HEENT: Normocephalic. Atraumatic. Patient has dry mucous membranes. External auditory canal and nares patent bilaterally. NECK: Supple. Trachea midline. CHEST/LUNGS: Clear to auscultated bilaterally. No wheezes crackles or rhonchi. HEART/CARDIOVASCULAR: Regular in rate and rhythm. PMI at the apex. ABDOMEN: Abdomen is soft, nontender. Patient has normal bowel sounds. SKIN: There is no rash, There is no diaphoresis. Warm and dry. NEUROLOGY: generalized weakness, left weaker then right MUSCULOSKELETAL: No joint effusion or tenderness. EXTRIMITY: left foot with chronic foot ulcer with great toe skin discoloration - Constitutional Vitals: Temp Pulse Resp BP Pulse Ox 98.0 F 92 H 20 142/66 99 07/27/16 11:30 07/27/16 14:42 07/27/16 14:42 07/27/16 11:30 07/27/16 12:07 Results - Labs CBC & Chem 7: 07/28/16 04:54 07/28/16 04:54 Labs: Laboratory Last Values WBC 14.3 K/mm3 (4.5-11.0) H 07/27/16 06:35 RBC 3.68 M/mm3 (3.65-5.03) 07/27/16 06:35 Hgb 10.1 gm/dl (10.1-14.3) 07/27/16 06:35 Hct 32.5 % (30.3-42.9) 07/27/16 06:35 MCV 88 fl (79-97) 07/27/16 06:35 MCH 27 pg (28-32) L 07/27/16 06:35 MCHC 31 % (30-34) 07/27/16 06:35 RDW 20.4 % (13.2-15.2) H 07/27/16 06:35 Plt Count 265 K/mm3 (140-440) 07/27/16 06:35 Lymph % (Auto) 4.9 % (13.4-35.0) L 07/27/16 06:35 [place] % (Auto) 7.7 % (0.0-7.3) H 07/27/16 06:35 Eos % (Auto) 2.1 % (0.0-4.3) 07/27/16 06:35 Baso % (Auto) 0.6 % (0.0-1.8) 07/27/16 06:35 Lymph # 0.7 K/mm3 (1.2-5.4) L 07/27/16 06:35 [place] # 1.1 K/mm3 (0.0-0.8) H 07/27/16 06:35 Eos # 0.3 K/mm3 (0.0-0.4) 07/27/16 06:35 Baso # 0.1 K/mm3 (0.0-0.1) 07/27/16 06:35 Seg Neutrophils % 84.7 % (40.0-70.0) H 07/27/16 06:35 Seg Neutrophils # 12.1 K/mm3 (1.8-7.7) H 07/27/16 06:35 PT 19.1 Sec. (12.2-14.9) H 07/26/16 12:55 INR 1.61 (0.87-1.13) H 07/26/16 12:55 Sodium 139 mmol/L (137-145) D 07/27/16 06:35 Potassium 4.6 mmol/L (3.6-5.0) 07/27/16 06:35 Chloride 93.5 mmol/L (98-107) L 07/27/16 06:35 Carbon Dioxide 25 mmol/L (22-30) 07/27/16 06:35 Anion Gap 25 mmol/L 07/27/16 06:35 BUN 26 mg/dL (7-17) H 07/27/16 06:35 Creatinine 4.4 mg/dL (0.7-1.2) H 07/27/16 06:35 Estimated GFR 12 ml/min 07/27/16 06:35 BUN/Creatinine Ratio 5.90 % 07/27/16 06:35 Glucose 111 mg/dL (65-100) H 07/27/16 06:35 Lactic Acid 1.0 mmol/L (0.7-2.0) 07/26/16 Unknown Calcium 11.2 mg/dL (8.4-10.2) H 07/27/16 06:35 Phosphorus 4.0 mg/dL (2.5-4.5) 07/27/16 06:35 Magnesium 2.3 mg/dL (1.7-2.3) 07/26/16 08:39 Iron 16 ug/dL (37-170) L 07/27/16 06:35 TIBC 144 mcg/dL (250-450) L 07/27/16 06:35 Ferritin 1108.0 ng/mL (13.0-400.0) H 07/27/16 06:35 Total Bilirubin 0.5 mg/dL (0.1-1.2) 07/26/16 08:39 AST 15 units/L (5-40) 07/26/16 08:39 ALT 12 units/L (7-56) 07/26/16 08:39 Alkaline Phosphatase 79 units/L (35-129) 07/26/16 08:39 NT-Pro-B Natriuret Pep > 00915 pg/mL (0-900) H 07/26/16 08:39 Total Protein 7.3 g/dL (6.3-8.2) 07/26/16 08:39 Albumin 3.4 g/dL (3.9-5) L 07/26/16 08:39 Albumin/Globulin Ratio 0.9 % 07/26/16 08:39 TSH 3.580 mlU/mL (0.270-4.200) 07/26/16 Unknown Salicylates < 0.3 mg/dL (2.8-20.0) L 07/26/16 Unknown Acetaminophen < 15.0 ug/mL (10.0-30.0) 07/26/16 08:39 Plasma/Serum Alcohol < 0.01 gm% (0-0.07) 07/26/16 08:39
[2016-07-27] MEDS: ZOCOR PO SCH (22:00)
[2016-07-28] MEDS: DUONEB 0.5 MG-3 MG/3 ML SOLN IH SCH ×4 (02:15→19:56)
[2016-07-28 05:56] LABS: BUN/Creatinine Ratio 7.35; Calcium 10.7 mg/dL (8.4-10.2); Chloride 90.2 mmol/L (98-107); Phosphorous 4.8 mg/dL (2.5-4.5); Potassium 4.6 mmol/L (3.6-5.0)
[2016-07-28 06:06] LABS: Basophils % (Auto) 0.5 % (0.0-1.8); Eosinophils % (Auto) 2.7 % (0.0-4.3); Hematocrit 29.6 % (30.3-42.9); Hemoglobin 9.3 gm/dl (10.1-14.3); Mean Corpuscular HGB Conc 31 % (30-34); Mean Corpuscular Hemoglobin 28 pg (28-32); Mean Corpuscular Volume 89 fl (79-97); Platelet Count 250 K/mm3 (140-440); Red Blood Count 3.34 M/mm3 (3.65-5.03); Red Cell Distribution Width 20.4 % (13.2-15.2); White Blood Count 14.7 K/mm3 (4.5-11.0)
--- NOTE | 2016-07-28 10:50 | Event Note ---
Date: 07/28/16 I attempted to see patient this AM but she was off the floor. Impression/Plan remains as previously documented but I am available for any questions/concerns. I will revisit 07/29
[2016-07-28] MEDS: COREG PO SCH ×2 (10:56→22:10)
[2016-07-28] MEDS ORDERED: LEVAQUIN 250MG/50ML 250 MG/50 ML BAG IV SCH (11:00)
[2016-07-28] MEDS ORDERED: LEVAQUIN 750MG/150ML 750 MG/150 ML BAG IV ONE (12:00)
[2016-07-28] MEDS ORDERED: FLUARIX QUAD 2016-2017(36 MOS+) IM ONE (12:00)
[2016-07-28] MEDS ORDERED: PNEUMOVAX 23 IM ONE (12:00)
--- NOTE | 2016-07-28 12:18 | Progress Note ---
Assessment and Plan - Patient Problems (1) ESRD (end stage renal disease) on dialysis Current Visit: No Status: Chronic Plan to address problem: Hemodialysis today for UF and clearance Anemia-Venofer therapy with HD Fluid restriction of 1 liter per day Renally dose medications Strict I/O's monitoring Monitor electrolytes and replete as necessary Dialysis diet Obtain daily weights Assess dialysis needs daily (2) Anemia in chronic kidney disease (CKD) Current Visit: No Status: Chronic Plan to address problem: Epogen as appropriate with HD Iron Deficiency-IV Venofer 100 mg with each HD session x 10 sessions (3) New onset seizure Current Visit: Yes Status: Acute Plan to address problem: On IV Keppra as per Primary team Neurology consulted (4) Hypertensive chronic kidney disease with stage 5 chronic kidney disease or end stage renal disease Current Visit: No Status: Chronic Plan to address problem: Blood pressures are stable Subjective Date of service: 07/28/16 Principal diagnosis: ESRD Interval history: Patient seen in dialysis unit and is more responsive today Objective - Vital Signs Vital signs: Vital Signs - 12hr 07/28/16 07/28/16 07/28/16 00:31 02:00 02:10 Temperature 98.2 F Pulse Rate Pulse Rate [ 96 H 96 H Anterior Bilateral Throughout] Pulse Rate [ 89 Right] Respiratory 18 Rate Respiratory 20 20 Rate [Anterior Bilateral Throughout] Blood Pressure Blood Pressure 109/73 [Right Arm] O2 Sat by Pulse 97 Oximetry 07/28/16 07/28/16 07/28/16 04:00 07:35 09:30 Temperature 98.2 F 98.8 F Pulse Rate 89 Pulse Rate [ 94 H Anterior Bilateral Throughout] Pulse Rate [ 86 Right] Respiratory 18 15 Rate Respiratory 20 Rate [Anterior Bilateral Throughout] Blood Pressure 132/67 Blood Pressure 114/77 [Right Arm] O2 Sat by Pulse 98 Oximetry 07/28/16 07/28/16 07/28/16 09:45 09:47 10:00 Temperature 98.0 F Pulse Rate 96 H 89 Pulse Rate [ Anterior Bilateral Throughout] Pulse Rate [ 90 Right] Respiratory 18 Rate Respiratory Rate [Anterior Bilateral Throughout] Blood Pressure 127/71 124/68 Blood Pressure 134/60 [Right Arm] O2 Sat by Pulse 100 Oximetry 07/28/16 07/28/16 07/28/16 10:15 10:30 10:45 Temperature Pulse Rate 90 88 85 Pulse Rate [ Anterior Bilateral Throughout] Pulse Rate [ Right] Respiratory Rate Respiratory Rate [Anterior Bilateral Throughout] Blood Pressure 139/58 135/67 141/60 Blood Pressure [Right Arm] O2 Sat by Pulse Oximetry 07/28/16 07/28/16 07/28/16 11:00 11:15 11:30 Temperature Pulse Rate 83 87 89 Pulse Rate [ Anterior Bilateral Throughout] Pulse Rate [ Right] Respiratory Rate Respiratory Rate [Anterior Bilateral Throughout] Blood Pressure 138/68 134/71 146/74 Blood Pressure [Right Arm] O2 Sat by Pulse Oximetry - General Appearance General appearance: appears stated age, chronically ill, other (opens yeyes and reponds to verbal stimuli) EENT: ATNC, PERRL, hearing intact Neck: no JVD, supple Respiratory: Present: Clear to Ascultation Cardiology: regular, S1S2 Gastrointestinal: normoactive bowel sounds Integumentary: warm and dry Neurologic: other (More alert today.) Musculoskeletal: other (Right AVF in use. Gauze dressing noted to heels due to ulcers) Psychiatric: cooperative - Lab 07/28/16 04:54 07/28/16 04:54 Most recent lab results Calcium 10.7 mg/dL (8.4-10.2) H 07/28/16 04:54 Phosphorus 4.8 mg/dL (2.5-4.5) H 07/28/16 04:54 Magnesium 2.3 mg/dL (1.7-2.3) 07/26/16 08:39
[2016-07-28] MEDS: VENOFER 100 MG in NACL 0.9% 50 ML IV SCH (12:57)
[2016-07-28] MEDS: KEPPRA 500 MG in D5W 100 ML IV SCH ×2 (14:24→22:00)
[2016-07-28] MEDS: COLACE PO SCH ×2 (14:55→22:10)
[2016-07-28] MEDS: ELIQUIS PO SCH ×2 (14:56→22:10)
[2016-07-28] MEDS: LEVEMIR SUB-Q SCH ×2 (14:57→17:45)
[2016-07-28] MEDS: PLAVIX PO SCH (14:58)
[2016-07-28] MEDS: Renal Caps PO SCH (14:58)
[2016-07-28] MEDS: SENSIPAR PO SCH (14:58)
[2016-07-28] MEDS: TRADJENTA PO SCH (14:58)
[2016-07-28] MEDS: NEURONTIN PO SCH (14:59)
[2016-07-28] MEDS: PEPCID IV SCH (14:59)
--- NOTE | 2016-07-28 16:40 | Magnetic Resonance Report ---
MRI BRAIN WITHOUT CONTRAST INDICATION: Seizure. COMPARISON: 07/26/[address] FINDINGS: Noncontrast multiplanar and multisequence MRI of the brain demonstrates symmetric, age-appropriate, mildly enlarged ventricles and sulci. Mild to moderate periventricular and few white matter FLAIR and T2 weighted hyperintensities, including few small lacunar infarcts measuring approximately 5-6 mm. Approximately 1.7 cm posterior right paramidline old inferior parietal infarct, axial image 13, series 7. No definite acute infarct, hemorrhage, mass effect or midline shift. Benign bilateral basal ganglia calcifications. No abnormal extra axial fluid collections. Normal major intracranial vascular flow voids. Motion artifact partly limits exam. Few old ischemic changes in the ina also noted. Otherwise unremarkable posterior fossa with symmetric seventh and eighth nerve complexes and preserved basilar cisterns. Slight nasal septal deviation. Approximately 7 mm left maxillary sinus mucus retention cyst inferolaterally. Mild right sphenoid sinusitis with air-fluid level. No other significant sinus or mastoid air cell abnormality. Normal midline structures without evidence of Chiari malformation. Possible cataract surgery. Cervical spondylosis. CONCLUSION: No acute intracranial MRI abnormality with age-appropriate atrophy, microvascular changes and various other findings noted, including suspected acute right sphenoid sinusitis, amongst others, as described. Please correlate. Thank you for the opportunity to participate in this patient's care.
--- NOTE | 2016-07-28 21:57 | Progress Note ---
Assessment and Plan Assessment and plan: New onset seizure Acute encephalopathy likely due to postictal stage End stage renal disease on dialysis CHF with EF 10% to 15% CAD s/p stent placement Leukocytosis likely due to left foot cellulitis Hyperkalemia likely due to end-stage renal disease DM type 2 on insulin left Chronic foot ulcer with cellulitis Plan; cont on IV Keppra and when necessary Ativan for seizure cont home meds, wound care, noted LE arterial doppler result consult vascular surgeon cont on abx, follow wound care report subcu insulin and check fingerstick BG follow EEG result nephrology following for dialysis Supportive care Frequent neurologic exam GI and DVT prophylaxis History Interval history: Patient seen and examined. Medical records and medication list reviewed. No acute event overnight noted by the RN. s/p HD today MRI didnot show any acute change EEG pending Hospitalist Physical - Physical exam Narrative exam: GGENERAL: This is an elderly female lying on bed appeared to be in no discomfort. HEENT: Normocephalic. Atraumatic. Patient has dry mucous membranes. External auditory canal and nares patent bilaterally. NECK: Supple. Trachea midline. CHEST/LUNGS: Clear to auscultated bilaterally. No wheezes crackles or rhonchi. HEART/CARDIOVASCULAR: Regular in rate and rhythm. PMI at the apex. ABDOMEN: Abdomen is soft, nontender. Patient has normal bowel sounds. SKIN: There is no rash, There is no diaphoresis. Warm and dry. NEUROLOGY: generalized weakness, left weaker then right MUSCULOSKELETAL: No joint effusion or tenderness. EXTRIMITY: left foot with chronic foot ulcer with great toe skin discoloration - Constitutional Vitals: Temp Pulse Resp BP Pulse Ox 97.6 F 85 17 115/55 100 07/28/16 19:52 07/28/16 19:58 07/28/16 19:58 07/28/16 19:52 07/28/16 19:57 Results - Labs CBC & Chem 7: 07/28/16 04:54 07/28/16 04:54 Labs: Laboratory Last Values WBC 14.7 K/mm3 (4.5-11.0) H 07/28/16 04:54 RBC 3.34 M/mm3 (3.65-5.03) L 07/28/16 04:54 Hgb 9.3 gm/dl (10.1-14.3) L 07/28/16 04:54 Hct 29.6 % (30.3-42.9) L 07/28/16 04:54 MCV 89 fl (79-97) 07/28/16 04:54 MCH 28 pg (28-32) 07/28/16 04:54 MCHC 31 % (30-34) 07/28/16 04:54 RDW 20.4 % (13.2-15.2) H 07/28/16 04:54 Plt Count 250 K/mm3 (140-440) 07/28/16 04:54 Lymph % (Auto) 6.2 % (13.4-35.0) L 07/28/16 04:54 [place] % (Auto) 7.6 % (0.0-7.3) H 07/28/16 04:54 Eos % (Auto) 2.7 % (0.0-4.3) 07/28/16 04:54 Baso % (Auto) 0.5 % (0.0-1.8) 07/28/16 04:54 Lymph # 0.9 K/mm3 (1.2-5.4) L 07/28/16 04:54 [place] # 1.1 K/mm3 (0.0-0.8) H 07/28/16 04:54 Eos # 0.4 K/mm3 (0.0-0.4) 07/28/16 04:54 Baso # 0.1 K/mm3 (0.0-0.1) 07/28/16 04:54 Seg Neutrophils % 83.0 % (40.0-70.0) H 07/28/16 04:54 Seg Neutrophils # 12.2 K/mm3 (1.8-7.7) H 07/28/16 04:54 PT 19.1 Sec. (12.2-14.9) H 07/26/16 12:55 INR 1.61 (0.87-1.13) H 07/26/16 12:55 Sodium 133 mmol/L (137-145) L 07/28/16 04:54 Potassium 4.6 mmol/L (3.6-5.0) 07/28/16 04:54 Chloride 90.2 mmol/L (98-107) L 07/28/16 04:54 Carbon Dioxide 27 mmol/L (22-30) 07/28/16 04:54 Anion Gap 20 mmol/L 07/28/16 04:54 BUN 39 mg/dL (7-17) H 07/28/16 04:54 Creatinine 5.3 mg/dL (0.7-1.2) H 07/28/16 04:54 Estimated GFR 9 ml/min 07/28/16 04:54 BUN/Creatinine Ratio 7.35 % 07/28/16 04:54 Glucose 176 mg/dL (65-100) H 07/28/16 04:54 POC Glucose 213 (70-105) H 07/28/16 21:30 Lactic Acid 1.0 mmol/L (0.7-2.0) 07/26/16 Unknown Calcium 10.7 mg/dL (8.4-10.2) H 07/28/16 04:54 Phosphorus 4.8 mg/dL (2.5-4.5) H 07/28/16 04:54 Magnesium 2.3 mg/dL (1.7-2.3) 07/26/16 08:39 Iron 16 ug/dL (37-170) L 07/27/16 06:35 TIBC 144 mcg/dL (250-450) L 07/27/16 06:35 Ferritin 1108.0 ng/mL (13.0-400.0) H 07/27/16 06:35 Total Bilirubin 0.5 mg/dL (0.1-1.2) 07/26/16 08:39 AST 15 units/L (5-40) 07/26/16 08:39 ALT 12 units/L (7-56) 07/26/16 08:39 Alkaline Phosphatase 79 units/L (35-129) 07/26/16 08:39 NT-Pro-B Natriuret Pep > 84895 pg/mL (0-900) H 07/26/16 08:39 Total Protein 7.3 g/dL (6.3-8.2) 07/26/16 08:39 Albumin 3.4 g/dL (3.9-5) L 07/26/16 08:39 Albumin/Globulin Ratio 0.9 % 07/26/16 08:39 TSH 3.580 mlU/mL (0.270-4.200) 07/26/16 Unknown Salicylates < 0.3 mg/dL (2.8-20.0) L 07/26/16 Unknown Acetaminophen < 15.0 ug/mL (10.0-30.0) 07/26/16 08:39 Plasma/Serum Alcohol < 0.01 gm% (0-0.07) 07/26/16 08:39
[2016-07-28] MEDS: ZOCOR PO SCH (22:10)
[2016-07-29] MEDS: DUONEB 0.5 MG-3 MG/3 ML SOLN IH SCH ×4 (02:26→19:13)
[2016-07-29 05:20] LABS: Basophils % (Auto) 0.7 % (0.0-1.8); Eosinophils % (Auto) 6.4 % (0.0-4.3); Hematocrit 33.2 % (30.3-42.9); Hemoglobin 10.3 gm/dl (10.1-14.3); Mean Corpuscular HGB Conc 31 % (30-34); Mean Corpuscular Hemoglobin 27 pg (28-32); Mean Corpuscular Volume 88 fl (79-97); Platelet Count 245 K/mm3 (140-440); Red Blood Count 3.76 M/mm3 (3.65-5.03); White Blood Count 11.8 K/mm3 (4.5-11.0)
[2016-07-29 05:44] LABS: BUN/Creatinine Ratio 6.47; Calcium 9.8 mg/dL (8.4-10.2); Phosphorous 2.8 mg/dL (2.5-4.5); Potassium 3.6 mmol/L (3.6-5.0)
--- NOTE | 2016-07-29 10:02 | Progress Note ---
Assessment and Plan 81 YO F Hx prior stroke unclear residual deficits resident of [place] on Elaquis/ Plavix who p/w AMS in setting of scheduled HD session for later in day and Fentanyl patch found on body but also c/b possible episode of LUE motor convulsive activity ? focal seizure. Neuro exam w/ impaired level of arousal, concentration and perseveration improved since admission and focal L face/arm > leg weakness suspected baseline but cannot r/o superimposed post ictal deficit. I suspect toxic metabolic encephalopathy from hypoNa c/b possible provoked focal seizure. MRI Brain nonacute. Plan and Recommendation: 1. Telemetry bed w/ Q4 hour neuro checks & Sz precautions 2. Labs: Serum/Urine Tox, UA/UCx, Electrolytes especially Na, Ca, Mg, and Glucose, TSH/Vit B12/Ammonia and correct as necessary 3. Cont Infectious work up/medical management for UTI, PNA, cellulitis, bacteremia, etc. 4. Avoid hyponatremia, hypo/hyper-calcemia, hypo/hyperglycemia, acidosis, hypoxia/hypoxemia, hypercarbia/hypercapnia 5. Avoid institution of any psychoactive medications (e.g. antihistamines, anticholinergics, BZD, hypnotics, opiates) as able unless low doses of low potency antipsychotic needed for behavioral issues complicating medical care 6. AED therapy: can continue Keppra @ 500mg BID as already started in ED 7. Avoid meds that can lower sz threshold e.g. Tramadol, fluroquinolones, carbapenems 8. Pt advised of [place] driving regulations: report date of presumed Seizure/ unexplained loss of consciousness/awareness spell to V, refrain from operating a motor vehicle for 6 months after this date, and avoid unsupervised activity particularly around water or heights 9. We can revisit as needed. 10. Pt will need outpt Neuro follow up Subjective Date of service: 07/29/16 Principal diagnosis: ESRD Interval history: HD completed. MRI Completed. MS improving slightly Objective - Vital Sign Vital Signs - 12hr 07/29/16 07/29/16 07/29/16 00:15 07:50 07:51 Temperature 98.2 F Pulse Rate [ 78 Anterior Bilateral Throughout] Pulse Rate [ 96 H Left Radial] Pulse Rate [ Right] Respiratory 20 Rate Respiratory 19 Rate [Anterior Bilateral Throughout] Blood Pressure 128/68 [Right Arm] O2 Sat by Pulse 98 100 Oximetry 07/29/16 09:07 Temperature 97.5 F L Pulse Rate [ Anterior Bilateral Throughout] Pulse Rate [ Left Radial] Pulse Rate [ 82 Right] Respiratory 18 Rate Respiratory Rate [Anterior Bilateral Throughout] Blood Pressure 135/67 [Right Arm] O2 Sat by Pulse 100 Oximetry - General Apperance Constitutional: uncomfortable, acutely ill, chronically ill - EENT EENT: ATNC, PERRL, mucous membranes dry, hearing intact, vision intact - Respiratory Respiratory: chest non-tender, normal breath sounds, no respiratory distress - Cardiovascular Extremities: no peripheral edema bilat, no clubbing, cyanosis, no inflammation, no ischemia or petechiae - Gastrointestinal Gastrointestinal: normoactive bowel sounds, non-distended - Integumentary Integumentary: normal - Neurologic Cranial nerve examination: PERRL, EOMI, VFF, V1/V2/V3 grossly intact, tongue midline, intact shoulder shrug, intact cough reflex, intact corneal reflex, facial droop (on L), normal palatal elevation Speech examination: intact Motor examination - right side: 5/5: biceps, triceps, wrist flexion, wrist extension, back maker, hip flexors, knee extensors, dorsiflexion, toe extension (EHL) , plantarflexion Motor examination - left side: 2/5: biceps, triceps, wrist flexion, wrist extension, back maker, 3/5: hip flexors, knee extensors, dorsiflexion, toe extension ( EHL), plantarflexion Detailed sensory examination: intact, pain (less brisk on L) Reflex and gait examination: Babinski's sign (on L) Reflexes: 3+: ankle (on L), bicep, knee, tricep - Musculoskeletal Musculoskeletal: no fluid collection, no pain, normal range of motion - Psychiatric Psychiatric: mood/affect appropriate - Laboratory Findings CBC and BMP: 07/29/16 04:33 07/29/16 04:33 Abnormal Lab Findings: Abnormal Labs 07/26/16 07/26/16 07/27/16 12:55 Unknown 06:35 WBC 14.3 H RBC Hgb Hct MCH 27 L RDW 20.4 H Lymph % (Auto) 4.9 L [place] % (Auto) 7.7 H Eos % (Auto) Lymph # 0.7 L [place] # 1.1 H Eos # Seg Neutrophils % 84.7 H Seg Neutrophils # 12.1 H PT 19.1 H INR 1.61 H Sodium Chloride BUN Creatinine Glucose POC Glucose Calcium Phosphorus Iron TIBC Ferritin Salicylates < 0.3 L 07/27/16 07/27/16 07/27/16 06:35 06:35 12:02 WBC RBC Hgb Hct MCH RDW Lymph % (Auto) [place] % (Auto) Eos % (Auto) Lymph # [place] # Eos # Seg Neutrophils % Seg Neutrophils # PT INR Sodium Chloride 93.5 L BUN 26 H Creatinine 4.4 H Glucose 111 H POC Glucose 121 H Calcium 11.2 H Phosphorus Iron 16 L TIBC 144 L Ferritin 1108.0 H Salicylates 07/27/16 07/27/16 07/28/16 15:51 21:09 04:54 WBC 14.7 H RBC 3.34 L Hgb 9.3 L Hct 29.6 L MCH RDW 20.4 H Lymph % (Auto) 6.2 L [place] % (Auto) 7.6 H Eos % (Auto) Lymph # 0.9 L [place] # 1.1 H Eos # Seg Neutrophils % 83.0 H Seg Neutrophils # 12.2 H PT INR Sodium Chloride BUN Creatinine Glucose POC Glucose 195 H 184 H Calcium Phosphorus Iron TIBC Ferritin Salicylates 07/28/16 07/28/16 07/28/16 04:54 17:29 21:30 WBC RBC Hgb Hct MCH RDW Lymph % (Auto) [place] % (Auto) Eos % (Auto) Lymph # [place] # Eos # Seg Neutrophils % Seg Neutrophils # PT INR Sodium 133 L Chloride 90.2 L BUN 39 H Creatinine 5.3 H Glucose 176 H POC Glucose 302 H 213 H Calcium 10.7 H Phosphorus 4.8 H Iron TIBC Ferritin Salicylates 07/29/16 07/29/16 04:33 04:33 WBC 11.8 H RBC Hgb Hct MCH 27 L RDW 20.0 H Lymph % (Auto) 7.4 L [place] % (Auto) 8.3 H Eos % (Auto) 6.4 H Lymph # 0.9 L [place] # 1.0 H Eos # 0.8 H Seg Neutrophils % 77.2 H Seg Neutrophils # 9.1 H PT INR Sodium 136 L Chloride 92.0 L BUN 22 H Creatinine 3.4 H Glucose 61 L POC Glucose Calcium Phosphorus Iron TIBC Ferritin Salicylates
[2016-07-29] MEDS: COLACE PO SCH ×2 (10:13→21:46)
[2016-07-29] MEDS: LEVEMIR SUB-Q SCH (11:05)
[2016-07-29] MEDS: KEPPRA 500 MG in D5W 100 ML IV SCH ×2 (13:16→21:48)
[2016-07-29] MEDS: COREG PO SCH ×2 (13:18→21:46)
[2016-07-29] MEDS: NEURONTIN PO SCH (13:18)
[2016-07-29] MEDS: ELIQUIS PO SCH ×2 (13:18→21:46)
[2016-07-29] MEDS: PEPCID IV SCH (13:19)
[2016-07-29] MEDS: PLAVIX PO SCH (13:19)
[2016-07-29] MEDS: TRADJENTA PO SCH (13:20)
[2016-07-29] MEDS: Renal Caps PO SCH (13:20)
[2016-07-29] MEDS: SENSIPAR PO SCH (13:20)
--- NOTE | 2016-07-29 15:17 | Progress Note ---
Assessment and Plan Assessment and plan: New onset seizure * cont on IV Keppra and when necessary Ativan for seizure * MRI with no acute finding Acute encephalopathy likely due to postictal stage * at baseline now * Supportive care * Frequent neurologic exam End stage renal disease on dialysis * nephrology following CHF with EF 10% to 15% * on coreg and statin * add acei CAD s/p stent placement * on eliquis, coreg, statin Leukocytosis likely due to left foot cellulitis * cont abx Hyperkalemia likely due to end-stage renal disease, resolved DM type 2 on insulin * subcu insulin and check fingerstick BG left Chronic non healing foot ulcer with cellulites * wound care, noted LE arterial doppler result * consulted vascular surgeon * may need arteriogram * She had an excisional debridement of her left heel at the time of her bypass surgery. Severe PVD * She is status post a left femoral artery to below the knee popliteal artery bypass using an in-situ greater saphenous vein graft (05/24/16). History Interval history: Patient seen and examined. Medical records and medication list reviewed. No acute event overnight noted by the RN. MRI didnot show any acute change Discussed at bedside with daughter and with vascular surgeon Hospitalist Physical - Physical exam Narrative exam: GGENERAL: This is an elderly female lying on bed appeared to be in no discomfort. HEENT: Normocephalic. Atraumatic. Patient has dry mucous membranes. External auditory canal and nares patent bilaterally. NECK: Supple. Trachea midline. CHEST/LUNGS: Clear to auscultated bilaterally. No wheezes crackles or rhonchi. HEART/CARDIOVASCULAR: Regular in rate and rhythm. PMI at the apex. ABDOMEN: Abdomen is soft, nontender. Patient has normal bowel sounds. SKIN: There is no rash, There is no diaphoresis. Warm and dry. NEUROLOGY: generalized weakness, left weaker then right MUSCULOSKELETAL: No joint effusion or tenderness. EXTRIMITY: left foot with chronic foot ulcer with great toe skin discoloration, b/l heel with wound dressing - Constitutional Vitals: Temp Pulse Resp BP Pulse Ox 98.1 F 90 18 121/56 100 07/29/16 13:38 07/29/16 13:38 07/29/16 13:38 07/29/16 13:38 07/29/16 13:38 Results - Labs CBC & Chem 7: 07/30/16 04:34 07/30/16 04:34 Labs: Laboratory Last Values WBC 11.8 K/mm3 (4.5-11.0) H 07/29/16 04:33 RBC 3.76 M/mm3 (3.65-5.03) 07/29/16 04:33 Hgb 10.3 gm/dl (10.1-14.3) 07/29/16 04:33 Hct 33.2 % (30.3-42.9) 07/29/16 04:33 MCV 88 fl (79-97) 07/29/16 04:33 MCH 27 pg (28-32) L 07/29/16 04:33 MCHC 31 % (30-34) 07/29/16 04:33 RDW 20.0 % (13.2-15.2) H 07/29/16 04:33 Plt Count 245 K/mm3 (140-440) 07/29/16 04:33 Lymph % (Auto) 7.4 % (13.4-35.0) L 07/29/16 04:33 [place] % (Auto) 8.3 % (0.0-7.3) H 07/29/16 04:33 Eos % (Auto) 6.4 % (0.0-4.3) H 07/29/16 04:33 Baso % (Auto) 0.7 % (0.0-1.8) 07/29/16 04:33 Lymph # 0.9 K/mm3 (1.2-5.4) L 07/29/16 04:33 [place] # 1.0 K/mm3 (0.0-0.8) H 07/29/16 04:33 Eos # 0.8 K/mm3 (0.0-0.4) H 07/29/16 04:33 Baso # 0.1 K/mm3 (0.0-0.1) 07/29/16 04:33 Seg Neutrophils % 77.2 % (40.0-70.0) H 07/29/16 04:33 Seg Neutrophils # 9.1 K/mm3 (1.8-7.7) H 07/29/16 04:33 PT 19.1 Sec. (12.2-14.9) H 07/26/16 12:55 INR 1.61 (0.87-1.13) H 07/26/16 12:55 Sodium 136 mmol/L (137-145) L 07/29/16 04:33 Potassium 3.6 mmol/L (3.6-5.0) D 07/29/16 04:33 Chloride 92.0 mmol/L (98-107) L 07/29/16 04:33 Carbon Dioxide 28 mmol/L (22-30) 07/29/16 04:33 Anion Gap 20 mmol/L 07/29/16 04:33 BUN 22 mg/dL (7-17) H 07/29/16 04:33 Creatinine 3.4 mg/dL (0.7-1.2) H 07/29/16 04:33 Estimated GFR 16 ml/min 07/29/16 04:33 BUN/Creatinine Ratio 6.47 % 07/29/16 04:33 Glucose 61 mg/dL (65-100) L 07/29/16 04:33 POC Glucose 42 (70-105) L 07/29/16 11:34 Lactic Acid 1.0 mmol/L (0.7-2.0) 07/26/16 Unknown Calcium 9.8 mg/dL (8.4-10.2) 07/29/16 04:33 Phosphorus 2.8 mg/dL (2.5-4.5) D 07/29/16 04:33 Magnesium 2.3 mg/dL (1.7-2.3) 07/26/16 08:39 Iron 16 ug/dL (37-170) L 07/27/16 06:35 TIBC 144 mcg/dL (250-450) L 07/27/16 06:35 Ferritin 1108.0 ng/mL (13.0-400.0) H 07/27/16 06:35 Total Bilirubin 0.5 mg/dL (0.1-1.2) 07/26/16 08:39 AST 15 units/L (5-40) 07/26/16 08:39 ALT 12 units/L (7-56) 07/26/16 08:39 Alkaline Phosphatase 79 units/L (35-129) 07/26/16 08:39 NT-Pro-B Natriuret Pep > 22787 pg/mL (0-900) H 07/26/16 08:39 Total Protein 7.3 g/dL (6.3-8.2) 07/26/16 08:39 Albumin 3.4 g/dL (3.9-5) L 07/26/16 08:39 Albumin/Globulin Ratio 0.9 % 07/26/16 08:39 TSH 3.580 mlU/mL (0.270-4.200) 07/26/16 Unknown Salicylates < 0.3 mg/dL (2.8-20.0) L 07/26/16 Unknown Acetaminophen < 15.0 ug/mL (10.0-30.0) 07/26/16 08:39 Plasma/Serum Alcohol < 0.01 gm% (0-0.07) 07/26/16 08:39 - Imaging and Cardiology MRI - head: report reviewed
--- NOTE | 2016-07-29 15:22 | Progress Note ---
Assessment and Plan - Patient Problems (1) ESRD (end stage renal disease) on dialysis Current Visit: No Status: Chronic Plan to address problem: Received hemodialysis yesterday for UF and clearance No acute indication for HD today Anemia-Venofer therapy with HD Fluid restriction of 1 liter per day Renally dose medications Strict I/O's monitoring Monitor electrolytes and replete as necessary Dialysis diet Obtain daily weights Assess dialysis needs daily (2) Anemia in chronic kidney disease (CKD) Current Visit: No Status: Chronic Plan to address problem: Epogen as appropriate with HD Iron Deficiency-IV Venofer 100 mg with each HD session x 10 sessions (3) New onset seizure Current Visit: Yes Status: Acute Plan to address problem: On IV Keppra as per Primary team Neurology on board (4) Hypertensive chronic kidney disease with stage 5 chronic kidney disease or end stage renal disease Current Visit: No Status: Chronic Plan to address problem: Blood pressures are stable Subjective Date of service: 07/29/16 Principal diagnosis: ESRD Interval history: Patient seen lying in bed. Awake and alert. Complains that the bed needs to be softer. Objective - Vital Signs Vital signs: Vital Signs - 12hr 07/29/16 07/29/16 07/29/16 07:50 07:51 09:07 Temperature 97.5 F L Pulse Rate [ 78 Anterior Bilateral Throughout] Pulse Rate [ Left Radial] Pulse Rate [ 82 Right] Respiratory 18 Rate Respiratory 19 Rate [Anterior Bilateral Throughout] Blood Pressure 135/67 [Right Arm] O2 Sat by Pulse 100 100 Oximetry 07/29/16 07/29/16 07/29/16 10:00 11:37 13:37 Temperature 98.1 F Pulse Rate [ 80 Anterior Bilateral Throughout] Pulse Rate [ 82 Left Radial] Pulse Rate [ 80 Right] Respiratory 20 18 Rate Respiratory 17 Rate [Anterior Bilateral Throughout] Blood Pressure 121/56 [Right Arm] O2 Sat by Pulse 100 100 Oximetry 07/29/16 13:38 Temperature 98.1 F Pulse Rate [ Anterior Bilateral Throughout] Pulse Rate [ Left Radial] Pulse Rate [ 90 Right] Respiratory 18 Rate Respiratory Rate [Anterior Bilateral Throughout] Blood Pressure 121/56 [Right Arm] O2 Sat by Pulse 100 Oximetry - General Appearance General appearance: well-developed, appears stated age EENT: ATNC, PERRL, hearing intact Neck: no JVD, supple Respiratory: Present: Decreased Breath Sounds Cardiology: regular, S1S2 Gastrointestinal: normoactive bowel sounds Integumentary: warm and dry Neurologic: other (Awake and alert ) Musculoskeletal: decreased ROM, other (ulcers to lower extremities) Psychiatric: cooperative - Lab 07/29/16 04:33 07/29/16 04:33 Most recent lab results Calcium 9.8 mg/dL (8.4-10.2) 07/29/16 04:33 Phosphorus 2.8 mg/dL (2.5-4.5) D 07/29/16 04:33 Magnesium 2.3 mg/dL (1.7-2.3) 07/26/16 08:39
--- NOTE | 2016-07-29 15:57 | Consultation ---
History of Present Illness - Reason for Consult Consult date: 07/29/16 Peripheral Arterial Disease with Gangrene Requesting physician: AMARILIS HILLIARD - History of Present Illness This patient is a 81-year-old female that was admitted via the emergency room on 07/26/2016 due to altered mental status (and was unresponsive upon admission). There was concern that she may have had some sort of focal seizure like activity involving her left upper extremity. A neurology consult was placed, and workup initiated. She has underlying peripheral arterial disease with bilateral lower extremity heel ulcerations. A vascular surgery consult has been requested to further evaluate. She is well-known to our service. She is status post a left femoral artery to below the knee popliteal artery bypass using an in-situ greater saphenous vein graft (05/24/16). She had an excisional debridement of her left heel at the time of her bypass surgery. Following discharge, she was transferred to a retirement facility. Her daughter states that she has been nonambulatory since May. Past History Past Medical History: CAD (s/p AR), diabetes, dialysis, ESRD, hypertension, renal failure, stroke Past Surgical History: Other (RUE loop fore arm AVG 2011 while in [place], Arteriogram with attempted percuatneous arterial intervention, L fem-below knee pop in-situ with GSV graft, Fistulagram/angiplasty of RUE avg) Social history: other ([place] resident). denies: smoking (H/o tobacco use), alcohol abuse (Drinks alcohol socially) Family history: CAD, diabetes Medications and Allergies Allergies Allergy/AdvReac Type Severity Reaction Status Date / Time No Known Allergies Allergy Verified 06/20/16 19:58 Home Medications Medication Instructions Recorded Confirmed Last Taken Type Apixaban [Eliquis] 5 mg PO DAILY 04/20/16 06/29/16 06/29/16 History Carvedilol 6.25 mg PO BID 04/20/16 06/29/16 06/29/16 History Cinacalcet HCl [Sensipar] 30 mg PO DAILY 04/20/16 06/29/16 06/29/16 History Clopidogrel Bisulfate [Clopidogrel] 75 mg PO DAILY 04/20/16 06/29/16 06/29/16 History Gabapentin [Neurontin] 300 mg PO DAILY 04/20/16 06/29/16 06/29/16 History Insulin Glargine [Lantus VIAL] 15 units SC DAILY 04/20/16 06/29/16 06/29/16 History Metoprolol Tartrate 25 mg PO DAILY 04/20/16 06/29/16 06/29/16 History Simvastatin 40 mg PO QHS 04/20/16 06/29/16 06/29/16 History Vitamin B Comp and C/FA/Zn Cit 1 tab PO DAILY 04/20/16 06/29/16 06/29/16 History [Dialyvite 800-Zinc 15 mg Tab] Sitagliptin Phosphate [Januvia] 25 mg PO QDAY 05/20/16 06/29/16 06/29/16 History oxyCODONE 5 mg PO PRN 05/24/16 06/29/16 06/29/16 History HYDROcodone/APAP 7.5-325 [[place] 1 each PO Q6HR PRN #60 tablet 06/04/16 06/29/16 06/29/16 Rx 7.5/325] Lisinopril [Zestril TAB] 2.5 mg PO QDAY #30 tab 06/04/16 06/29/16 06/29/16 Rx Active Meds: Active Medications Acetaminophen (Tylenol) 650 mg PO Q4H PRN PRN Reason: Pain MILD(1-3)/Fever >100.5/FALCON Albuterol/Ipratropium (Duoneb 0.5 Mg-3 Mg/3 Ml Soln) 1 ampul IH Q6HRT [facility] Last Admin: 07/29/16 13:37 Dose: 1 ampul Apixaban (Eliquis) 5 mg PO BID [facility] Last Admin: 07/29/16 13:18 Dose: 5 mg Bisacodyl (Dulcolax) 10 mg RI QDAY PRN PRN Reason: Constipation unrelieved by MOM Carvedilol (Coreg) 6.25 mg PO BID [facility] Last Admin: 07/29/16 13:18 Dose: 6.25 mg Cinacalcet (Sensipar) 30 mg PO QDAY [facility] Last Admin: 07/29/16 13:20 Dose: 30 mg Clopidogrel Bisulfate (Plavix) 75 mg PO DAILY [facility] Last Admin: 07/29/16 13:19 Dose: 75 mg Dextrose (D50w (25gm)) 50 ml IV PRN PRN PRN Reason: Hypoglycemia Docusate Sodium (Colace) 100 mg PO BID [facility] Last Admin: 07/29/16 10:13 Dose: Not Given Famotidine (Pepcid) 20 mg IV QDAY [facility] Last Admin: 07/29/16 13:19 Dose: 20 mg Gabapentin (Neurontin) 300 mg PO DAILY [facility] Last Admin: 07/29/16 13:18 Dose: 300 mg Levetiracetam 500 mg/ Dextrose 105 mls @ 400 mls/hr IV Q12HR [facility] Last Admin: 07/29/16 13:16 Dose: 400 mls/hr Iron Sucrose 100 mg/ Sodium (Chloride) 55 mls @ 100 mls/hr IV BETH [facility] Stop: 08/06/16 11:32 Last Admin: 07/28/16 12:57 Dose: 100 mls/hr Levofloxacin/Dextrose (Levaquin 500mg/100ml) 500 mg in 100 mls @ 100 mls/hr IV Q48H [facility] Insulin Detemir (Levemir) 15 units SUB-Q QDAY [facility] Last Admin: 07/29/16 11:05 Dose: Not Given Linagliptin (Tradjenta) 5 mg PO QDAY [facility] Last Admin: 07/29/16 13:20 Dose: 5 mg Lorazepam (Ativan) 1 mg IV Q1H PRN PRN Reason: Seizures Morphine Sulfate (Morphine) 2 mg IV Q4H PRN PRN Reason: Pain, Moderate (4-6) Multivit/Ca Carb/B Cmplx/FA/Prenat (Renal Caps) 1 cap PO QDAY [facility] Last Admin: 07/29/16 13:20 Dose: 1 cap Ondansetron HCl (Zofran) 4 mg IV Q8H PRN PRN Reason: N/V unrelieved by Reglan Simvastatin (Zocor) 40 mg PO QHS [facility] Last Admin: 07/28/16 22:10 Dose: Not Given Review of Systems ROS unobtainable: due to mental status Exam - Constitutional Vitals: Temp Pulse Resp BP Pulse Ox 98.1 F 90 18 121/56 100 07/29/16 13:38 07/29/16 13:38 07/29/16 13:38 07/29/16 13:38 07/29/16 13:38 General appearance: Present: no acute distress - EENT Eyes: Present: EOM intact ENT: hearing intact - Neck Neck: Present: supple - Respiratory Respiratory effort: normal (unlabored at rest on room air) - Extremities Extremities: abnormal (RUE fore arm loop avg, bilat lower ext heel ulceration with blackened eschar, no erythema or drainage, mod foul odor, all incisions are intact except left medial upper calf incision at pop anastomosis) Extremity abnormal: black (dry gangrene to Left 1st and 3rd toes) - Additional findings Additional findings: Results - Labs CBC & Chem 7: 07/29/16 04:33 07/29/16 04:33 Labs: Abnormal lab results 07/28/16 07/28/16 07/29/16 Range/Units 17:29 21:30 04:33 WBC 11.8 H (4.5-11.0) K/mm3 MCH 27 L (28-32) pg RDW 20.0 H (13.2-15.2) % Lymph % (Auto) 7.4 L (13.4-35.0) % [place] % (Auto) 8.3 H (0.0-7.3) % Eos % (Auto) 6.4 H (0.0-4.3) % Lymph # 0.9 L (1.2-5.4) K/mm3 [place] # 1.0 H (0.0-0.8) K/mm3 Eos # 0.8 H (0.0-0.4) K/mm3 Seg Neutrophils % 77.2 H (40.0-70.0) % Seg Neutrophils # 9.1 H (1.8-7.7) K/mm3 Sodium (137-145) mmol/L Chloride (98-107) mmol/L BUN (7-17) mg/dL Creatinine (0.7-1.2) mg/dL Glucose (65-100) mg/dL POC Glucose 302 H 213 H (70-105) 07/29/16 07/29/16 07/29/16 Range/Units 04:33 08:35 11:34 WBC (4.5-11.0) K/mm3 MCH (28-32) pg RDW (13.2-15.2) % Lymph % (Auto) (13.4-35.0) % [place] % (Auto) (0.0-7.3) % Eos % (Auto) (0.0-4.3) % Lymph # (1.2-5.4) K/mm3 [place] # (0.0-0.8) K/mm3 Eos # (0.0-0.4) K/mm3 Seg Neutrophils % (40.0-70.0) % Seg Neutrophils # (1.8-7.7) K/mm3 Sodium 136 L (137-145) mmol/L Chloride 92.0 L (98-107) mmol/L BUN 22 H (7-17) mg/dL Creatinine 3.4 H (0.7-1.2) mg/dL Glucose 61 L (65-100) mg/dL POC Glucose 59 L 42 L (70-105) Assessment and Plan This pt was admitted due to new onset AMS. She was evaluated by neurology. The altered mental status was suspected to be due to a toxic metabolic encephalopathy from hyponatremia which may have provoked a focal seizure. 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 During the course of her examination, she was noted to have bilateral necrotic heel ulceration with gangrenous changes to the left first and third toes. A Vascular surgery consult was requested to further evaluate. She had an arterial duplex. Results will need to be reviewed and compared with previous studies if available. Her bypass graft has a palpable pulse on the left lower extremity. She has breakdown of the distal medial incision. This wound has dehisced with yellow fibrinous slough covering the wound base. There is no erythema and scant clear drainage appreciated. I was unable to palpate pedal pulses bilaterally. Arterial disease certainly could inhibit her ability to heal distal wounds, and she may benefit from additional arterial intervention. The situation was discussed with the neurology service. Ideally would avoid intervention after the recent altered mental status changes as sedation could add to her encephalopathy. She has significant bilateral heel ulcerations, suspect this is due in large part to pressure given her nonambulatory/bed bound status. These wounds will not heal without aggressive offloading of heel pressure. This was discussed with her family, and her nurse. Heel protective boots were ordered. We'll consult the wound care nurse to address her wound care needs. We will reevaluate the patient tomorrow. - Patient Problems (1) Atherosclerosis of [place] arteries of the extremities with gangrene Current Visit: Yes Status: Acute Qualifiers: Peripheral atherosclerosis location: P Laterality: L (2) Altered mental status Current Visit: Yes Status: Acute Qualifiers: Altered mental status type: A Coma depth: C Coma timing: C (3) New onset seizure Current Visit: Yes Status: Acute (4) ESRD (end stage renal disease) on dialysis Current Visit: No Status: Chronic
--- NOTE | 2016-07-29 17:29 | Vascular Lab Report ---
LOWER EXTREMITY ARTERIAL DUPLEX: REASON FOR EXAM: Peripheral arterial disease. COMMENTS ON THE RIGHT: Biphasic waveforms are seen proximally. monophasic waveforms are seen distally. No flow noted in the posterior tibial artery. No focal significant plaque is identified. Findings are consistent with abnormal perfusion. Findings are inconsistent with the ability to heal distal wounds. COMMENTS ON THE LEFT: Monophasic waveforms are seen proximally. Monophasic waveforms are seen distally. Occluded superficial femoral and popliteal artery noted. Patent femoral tibial bypass without intragraft stenosis or occlusion. Scatter plaque is identified throughout the extremity. Findings are consistent with abnormal perfusion. Findings are inconsistent with the ability to heal distal wounds. IMPRESSION: RIGHT: Occluded right posterior tibial artery. LEFT:Patent left femorotibial bypass. Distal infrapopliteal disease..
[2016-07-29] MEDS: ZOCOR PO SCH (21:46)
[2016-07-30] MEDS: DUONEB 0.5 MG-3 MG/3 ML SOLN IH SCH ×3 (02:25→14:34)
[2016-07-30 05:48] LABS: Basophils % (Auto) 0.7 % (0.0-1.8); Mean Corpuscular HGB Conc 30 % (30-34); Mean Corpuscular Hemoglobin 27 pg (28-32); Mean Corpuscular Volume 88 fl (79-97); Platelet Count 269 K/mm3 (140-440); Red Blood Count 3.94 M/mm3 (3.65-5.03); White Blood Count 11.1 K/mm3 (4.5-11.0)
[2016-07-30 05:49] LABS: Hematocrit 34.8 % (30.3-42.9); Hemoglobin 10.6 gm/dl (10.1-14.3); Red Cell Distribution Width 20.3 % (13.2-15.2)
[2016-07-30 07:59] LABS: BUN/Creatinine Ratio 5.74; Calcium 9.8 mg/dL (8.4-10.2); Chloride 87.5 mmol/L (98-107); Phosphorous 4.1 mg/dL (2.5-4.5)
--- NOTE | 2016-07-30 10:31 | Progress Note ---
Assessment and Plan (1) ESRD (end stage renal disease) on dialysis Current Visit: No Status: Chronic Plan to address problem: HD today for clearance and volume removal Fluid restriction of 1 liter per day Renally dose medications Strict I/O's monitoring Monitor electrolytes and replete as necessary Dialysis diet Obtain daily weights Assess dialysis needs daily (2) Anemia in chronic kidney disease (CKD) Current Visit: No Status: Chronic Plan to address problem: Epogen as appropriate with HD Iron Deficiency-IV Venofer 100 mg with each HD session x 10 sessions (3) New onset seizure Current Visit: Yes Status: Acute Plan to address problem: On IV Keppra as per Primary team Neurology on board (4) Hypertensive chronic kidney disease with stage 5 chronic kidney disease or end stage renal disease Current Visit: No Status: Chronic Plan to address problem: Blood pressures are stable Subjective Date of service: 07/30/16 Principal diagnosis: ESRD Interval history: seen during HD, tolerating Objective - Vital Signs Vital signs: Vital Signs - 12hr 07/30/16 07/30/16 07/30/16 00:09 01:04 05:15 Temperature 98 F 98.2 F Pulse Rate 85 Pulse Rate [ Anterior Bilateral Throughout] Pulse Rate [ 92 H 68 Left Radial] Pulse Rate [ Right] Respiratory 18 18 Rate Respiratory Rate [Anterior Bilateral Throughout] Blood Pressure 112/58 114/64 [Right Arm] O2 Sat by Pulse 94 100 Oximetry 07/30/16 07/30/16 07/30/16 07:45 07:50 07:55 Temperature Pulse Rate Pulse Rate [ 83 91 H Anterior Bilateral Throughout] Pulse Rate [ Left Radial] Pulse Rate [ Right] Respiratory Rate Respiratory 18 18 Rate [Anterior Bilateral Throughout] Blood Pressure [Right Arm] O2 Sat by Pulse 100 Oximetry 07/30/16 08:56 Temperature 98.0 F Pulse Rate Pulse Rate [ Anterior Bilateral Throughout] Pulse Rate [ Left Radial] Pulse Rate [ 94 H Right] Respiratory 20 Rate Respiratory Rate [Anterior Bilateral Throughout] Blood Pressure 133/60 [Right Arm] O2 Sat by Pulse 100 Oximetry - General Appearance General appearance: cachectic EENT: ATNC, PERRL, mucous membranes moist Neck: no JVD, no thyromegaly Respiratory: Present: Clear to Ascultation Cardiology: regular, S1S2 Gastrointestinal: normoactive bowel sounds, no tenderness, no distended Integumentary: no rash, warm and dry Neurologic: no focal deficit, no asterixis Musculoskeletal: other Psychiatric: mood/affect appropriate, cooperative - Lab 07/30/16 04:34 07/30/16 04:34 Most recent lab results Calcium 9.8 mg/dL (8.4-10.2) 07/30/16 04:34 Phosphorus 4.1 mg/dL (2.5-4.5) D 07/30/16 04:34 Magnesium 2.3 mg/dL (1.7-2.3) 07/26/16 08:39
[2016-07-30] MEDS ORDERED: LEVAQUIN 500MG/100ML 500 MG/100 ML BAG IV SCH (12:00)
[2016-07-30] MEDS: VENOFER 100 MG in NACL 0.9% 50 ML IV SCH (12:42)
[2016-07-30] MEDS ORDERED: COREG PO SCH (13:04)
--- NOTE | 2016-07-30 13:25 | Discharge Summary ---
Providers - Providers Date of Admission: 07/26/16 12:24 Date of discharge: 07/30/16 Attending physician: AMARILIS HILLIARD 07/27/16 07:28 Consult to Wound/ET Nurse [CONS] Routine Reason For Exam: wound eval 07/28/16 14:40 Consult to Physician [CONS] Routine Consulting Provider: LEONIDAS MANSFIELD Reason For Exam: chronic nonhealing ulcer Place consult to:: vascular surgeon Notified:: Shy GONZALEZ Phone number called:: Was contact made?: Yes If yes, spoke with:: [facility]-answering service Time called:: 17:58 Primary care physician: FOUNDRY OPERATOR Hospitalization Condition: Serious Hospital course: Discharge Diagnosis: New onset seizure * cont on Keppra * MRI with no acute finding Acute encephalopathy likely due to postictal stage * at baseline now * Supportive care * Frequent neurologic exam End stage renal disease on dialysis * HD per nephrology CHF with EF 10% to 15% * on coreg, lisinopril and statin CAD s/p stent placement * on eliquis, coreg, statin Leukocytosis likely due to left foot cellulitis * cont abx Hyperkalemia likely due to end-stage renal disease, resolved DM type 2 on insulin * subcu insulin and check fingerstick BG left 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 Severe PVD * She is status post a left femoral artery to below the knee popliteal artery bypass using an in-situ greater saphenous vein graft (05/24/16) * out patient follow up in two weeks [facility]: [facility] Time spent for discharge: 34 minutes Exam - Physical Exam Narrative exam: GGENERAL: This is an elderly female lying on bed appeared to be in no discomfort. HEENT: Normocephalic. Atraumatic. Patient has dry mucous membranes. External auditory canal and nares patent bilaterally. NECK: Supple. Trachea midline. CHEST/LUNGS: Clear to auscultated bilaterally. No wheezes crackles or rhonchi. HEART/CARDIOVASCULAR: Regular in rate and rhythm. PMI at the apex. ABDOMEN: Abdomen is soft, nontender. Patient has normal bowel sounds. SKIN: There is no rash, There is no diaphoresis. Warm and dry. NEUROLOGY: generalized weakness, left weaker then right MUSCULOSKELETAL: No joint effusion or tenderness. EXTRIMITY: left foot with chronic foot ulcer with great toe skin discoloration, b/l heel with wound dressing - Constitutional Vitals: Temp Pulse Resp BP Pulse Ox 101.0 F H 88 16 114/83 100 07/30/16 10:00 07/30/16 13:04 07/30/16 10:00 07/30/16 13:04 07/30/16 10:00 Plan Activity: advance as tolerated Weight Bearing Status: Non-Weight Bearing Diet: renal Wound: per wound nurse instructions Follow up with: PRIMARY CARE, [Primary Care Provider] - 3-5 Days Prescriptions: Amoxicillin/K Clav Tab [Augmentin 875 mg] 1 tab PO Q12HR #14 tab levETIRAcetam [Keppra TAB] 500 mg PO BID #60 tablet
[2016-07-30] MEDS ORDERED: ZESTRIL PO SCH (14:00)
--- NOTE | 2016-07-30 15:22 | Progress Note ---
Assessment and Plan Pt with bilat heel wounds that are largely related to bed rest and heel pressure. These wounds will not heel if heel pressure continues. She needs aggressive offloading of her heels bilat. She may need additional arterial intervention, but her wounds appear stable and would not risk exacerbating her encephalopathy at present. I spoke with the Hospitalist and called and spoke to the Pt's daughter. She will make f/u appt for our office in the 2wks. If her condition deteriorates, then these plans may need to be adjusted. - Patient Problems (1) Atherosclerosis of [place] arteries of the extremities with gangrene Current Visit: Yes Status: Acute Qualifiers: Peripheral atherosclerosis location: P Laterality: L (2) Altered mental status Current Visit: Yes Status: Acute Qualifiers: Altered mental status type: A Coma depth: C Coma timing: C (3) New onset seizure Current Visit: Yes Status: Acute (4) ESRD (end stage renal disease) on dialysis Current Visit: No Status: Chronic Subjective Date of service: 07/30/16 Principal diagnosis: ESRD Interval history: Pt was eval'd earlier while on HD. She denies new complaint. Objective - Constitutional Vitals: Vital Signs - 12hr 07/30/16 07/30/16 07/30/16 05:15 07:45 07:50 Temperature 98.2 F Pulse Rate Pulse Rate [ 83 Anterior Bilateral Throughout] Pulse Rate [ 68 Left Radial] Pulse Rate [ Right] Respiratory 18 Rate Respiratory 18 Rate [Anterior Bilateral Throughout] Blood Pressure Blood Pressure 114/64 [Right Arm] O2 Sat by Pulse 100 100 Oximetry 07/30/16 07/30/16 07/30/16 07:55 08:56 10:00 Temperature 98.0 F 101.0 F H Pulse Rate 78 Pulse Rate [ 91 H Anterior Bilateral Throughout] Pulse Rate [ 88 Left Radial] Pulse Rate [ 94 H Right] Respiratory 20 16 Rate Respiratory 18 Rate [Anterior Bilateral Throughout] Blood Pressure 115/56 Blood Pressure 133/60 [Right Arm] O2 Sat by Pulse 100 100 Oximetry 07/30/16 07/30/16 07/30/16 10:15 10:30 10:45 Temperature Pulse Rate 78 72 83 Pulse Rate [ Anterior Bilateral Throughout] Pulse Rate [ Left Radial] Pulse Rate [ Right] Respiratory Rate Respiratory Rate [Anterior Bilateral Throughout] Blood Pressure 122/52 98/52 112/59 Blood Pressure [Right Arm] O2 Sat by Pulse Oximetry 07/30/16 07/30/16 07/30/16 11:00 11:15 11:30 Temperature Pulse Rate 76 88 82 Pulse Rate [ Anterior Bilateral Throughout] Pulse Rate [ Left Radial] Pulse Rate [ Right] Respiratory Rate Respiratory Rate [Anterior Bilateral Throughout] Blood Pressure 118/52 110/58 117/58 Blood Pressure [Right Arm] O2 Sat by Pulse Oximetry 07/30/16 07/30/16 07/30/16 11:45 12:00 12:15 Temperature Pulse Rate 78 84 80 Pulse Rate [ Anterior Bilateral Throughout] Pulse Rate [ Left Radial] Pulse Rate [ Right] Respiratory Rate Respiratory Rate [Anterior Bilateral Throughout] Blood Pressure 128/58 108/62 120/64 Blood Pressure [Right Arm] O2 Sat by Pulse Oximetry 07/30/16 07/30/16 07/30/16 12:30 12:45 13:04 Temperature Pulse Rate 78 83 88 Pulse Rate [ Anterior Bilateral Throughout] Pulse Rate [ Left Radial] Pulse Rate [ Right] Respiratory Rate Respiratory Rate [Anterior Bilateral Throughout] Blood Pressure 120/68 119/62 114/83 Blood Pressure [Right Arm] O2 Sat by Pulse Oximetry 07/30/16 07/30/16 07/30/16 13:15 13:30 13:45 Temperature Pulse Rate 86 90 90 Pulse Rate [ Anterior Bilateral Throughout] Pulse Rate [ Left Radial] Pulse Rate [ Right] Respiratory Rate Respiratory Rate [Anterior Bilateral Throughout] Blood Pressure 124/64 115/63 110/60 Blood Pressure [Right Arm] O2 Sat by Pulse Oximetry 07/30/16 14:30 Temperature 100.5 F H Pulse Rate 86 Pulse Rate [ Anterior Bilateral Throughout] Pulse Rate [ Left Radial] Pulse Rate [ Right] Respiratory 16 Rate Respiratory Rate [Anterior Bilateral Throughout] Blood Pressure 129/62 Blood Pressure [Right Arm] O2 Sat by Pulse Oximetry General appearance: Present: no acute distress - EENT Eyes: EOM intact ENT: hearing intact - Respiratory Respiratory effort: normal Extremities: abnormal (feet warm, unable to palp pedal pulses, Heel wounds dry and unchanged. No erythema.) - Neurologic Neurologic: no focal deficits - Psychiatric Psychiatric: cooperative - Labs CBC & Chem 7: 07/30/16 04:34 07/30/16 04:34 Labs: Abnormal lab results 07/29/16 07/29/16 07/30/16 Range/Units 15:19 20:50 04:34 WBC 11.1 H (4.5-11.0) K/mm3 MCH 27 L (28-32) pg RDW 20.3 H (13.2-15.2) % Lymph % (Auto) 7.7 L (13.4-35.0) % [place] % (Auto) 8.3 H (0.0-7.3) % Eos % (Auto) 11.0 H (0.0-4.3) % Lymph # 0.9 L (1.2-5.4) K/mm3 [place] # 0.9 H (0.0-0.8) K/mm3 Eos # 1.2 H (0.0-0.4) K/mm3 Seg Neutrophils % 72.3 H (40.0-70.0) % Seg Neutrophils # 8.1 H (1.8-7.7) K/mm3 BUN (7-17) mg/dL Creatinine (0.7-1.2) mg/dL Glucose (65-100) mg/dL POC Glucose 134 H 154 H (70-105) 07/30/ Range/Units 04:34 WBC (4.5-11.0) K/mm3 MCH (28-32) pg RDW (13.2-15.2) % Lymph % (Auto) (13.4-35.0) % [place] % (Auto) (0.0-7.3) % Eos % (Auto) (0.0-4.3) % Lymph # (1.2-5.4) K/mm3 [place] # (0.0-0.8) K/mm3 Eos # (0.0-0.4) K/mm3 Seg Neutrophils % (40.0-70.0) % Seg Neutrophils # (1.8-7.7) K/mm3 BUN 31 H (7-17) mg/dL Creatinine 5.4 H D (0.7-1.2) mg/dL Glucose 127 H (65-100) mg/dL POC Glucose (70-105)
[2016-07-30 18:11] VITALS: BP 137/62
[2016-07-30] MEDS: COLACE PO SCH (18:45)
[2016-07-30] MEDS: LEVEMIR SUB-Q SCH (18:45)
[2016-07-30] MEDS: ELIQUIS PO SCH (18:45)
--- NOTE | 2016-08-03 10:07 | Query-Infection ---
Jamison Robertson____Fortunato Date:__08/03/2016 English Tutor/CDS:____Roberttim / Nuha Phone#:____[phone] Exercise your independent professional judgment when responding to this query. Questions asked do not imply a particular answer is desired or expected. We greatly appreciate your clarification on this issue. Clinical Documentation States: 81 year old female was admitted on 07/26/16. The progress note (07/29/16) states " Leukocytosis likely due to left foot cellulitis. Left chronic non healing foot ulcer with cellulitis " WBC: 15.9 Temperature: 100 Pulse: 98 IV levofloxacin was given. Clinical findings show: (please check applicable parameters) Infection, known /suspected, with some of the following indicators; Specify the infection: 3 General parameters [ ] Fever (core temp >38.30C or 100.40F) [ ] Hypothermia (core temp <36C) [ ] Heart rate >90 bpm [ ] Tachypnea: >20 bpm or pCO2 < 32 mmHg [ ] Altered mental status [ ] Significant edema / +ve fluid balance (>20 ml/kg 24 h) [ ] Hyperglycemia (Bl. glucose >110 mg/dl) w/o diabetes Inflammatory parameters [ ] Leukocytosis (white blood cell count >12,000/l) [ ] Leukopenia (white blood cell count <4,000/l) [ ] Bandemia (immature WBC > 10%) [ ] Leucocyte Left Shift [ ] Plasma procalcitonin>2 SD above the normal value Hemodynamic and tissue perfusion parameters [ ] Arterial hypotension(SBP <90 mmHg, MAP <70 mmHg,or a SBP drop >40 mmHg in adults) [ ] Hyperlactatemia (>3 mmol/l) [ ] Anion Gap (> 11mEG/l) [ ] Decreased capillary refill or mottling Organ dysfunction parameters [ ] Arterial hypoxemia (PaO2/FIO2 <300) [ ] Creatinine increase =0.5 mg/dl [ ] Acute oliguria (urine output <0.5 ml | kg |h or 45 mM/l for at least 2 hrs) [ ] Coagulation abnormalities (INR >1.5 or activated partial thromboplastin time >60 s) [ ] Ileus (absent rosa isela wel sounds) [ ] Thrombocytopenia (platelet count <100,000/l) [ ] Hyperbilirubinemia (plasma total bilirubin >4 mg/dl) According to the clinical indications above, can Bacteremia be further specified? If so, please indicate below and in your Progress Notes and/ or Discharge Summary. Indicate if the condition was present on admission. PHYSICIAN RESPONSE: [ x] Sepsis [ ] Severe Sepsis [ ] Septic Shock [ ] Septicemia [ ] Sepsis now resolved [ ] SIRS due to non-infectious cause with organ dysfunction [ ] SIRS due to non-infectious cause without organ dysfunction [ ] Other: [ ] Comment/Explanation: Present on Admission: [ x] Yes (Y) [ ] Clinically undeterminable (W) [ ] No (N) [ ] Ruled Out Please also document response in your Progress Notes and/or Discharge Summary and indicate if the condition was present on admission Notes: SIRS/ SIRS WITH ORGAN DYSFUNCTION Systemic inflammatory response syndrome (SIRS) generally refers to the systemic response to trauma/vaz or other insult such as Acute Myocardial Infarction, Acute Pancreatitis, and Major Surgery with symptoms including fever, tachycardia , tachypnea, and leukocytosis (1). BACTEREMIA Presence of viable bacteria in the circulating blood (2). This term is reserved for patients that do not manifest above SIRS response. SEPTICEMIA Generally refers to a systemic disease associated with the presence of pathological microorganisms or toxins in the blood, which can include bacteria, viruses, fungi or other organisms (1). SEPSIS Generally refers to SIRS due infection (1). SEVERE SEPSIS Generally refers to sepsis associated with acute organ dysfunction (1). SEPTIC SHOCK Generally refers to circulatory failure associated with severe sepsis (2), and defined as hypotension or hypoperfusion despite adequate fluid resuscitation (1 hour) (3). REFERENCES: 1. [place] [employer]/Society of Critical Care Medicine Consensus Conference. Definitions for sepsis and organ failure and guidelines for the use of innovative therapies in sepsis. Critical Care Med 1992;20:864 - 74. 2. Silverio briggs MM, Maya MP, [place] SHRUTHI, Wojciech E, Estuardo D, Deepak D, James J, Lilia SM , Luis MCDONOUGH, Altagracia G; International Sepsis Definitions Conference. 2001 SCCM/ESICM/ACCP/ATS/SIS International Sepsis Definitions Conference. Intensive Care Med. 2002 Apr;29(4):530-8. Epub 2002Aug 31. Review. PubMed PMID:[id number] 3. ICD-9-CM Official Guidelines for Coding and Reporting 4. Medscape Drugs, Diseases and Procedures references 5. [employer]anna Textbook of Internal Medicine. 18th Edition MTDD
== END 2016-07-30 20:04 | DRG 871 ==
LOC: ED 08:04 → 4A 12:24
PROVIDERS: ADMIT Internal Medicine; ATTEND Internal Medicine
PROC: 5A1D60Z (ICD-10-PCS; principal; 2016-07-26)
DX: A41.9 Sepsis, unspecified organism (principal); G93.40 Encephalopathy, unspecified; N18.6 End stage renal disease; I13.2 Hypertensive heart and chronic kidney disease with heart failure and with stage 5 chronic kidney disease, or end stage renal disease; E87.1 Hypo-osmolality and hyponatremia; I70.262 Atherosclerosis of native arteries of extremities with gangrene, left leg; E11.52 Type 2 diabetes mellitus with diabetic peripheral angiopathy with gangrene; L97.429 Non-pressure chronic ulcer of left heel and midfoot with unspecified severity; I25.10 Atherosclerotic heart disease of native coronary artery without angina pectoris; E87.5 Hyperkalemia; R56.9 Unspecified convulsions; E11.42 Type 2 diabetes mellitus with diabetic polyneuropathy; E11.621 Type 2 diabetes mellitus with foot ulcer; L97.519 Non-pressure chronic ulcer of other part of right foot with unspecified severity; D63.1 Anemia in chronic kidney disease; I50.9 Heart failure, unspecified; E11.22 Type 2 diabetes mellitus with diabetic chronic kidney disease; F10.10 Alcohol abuse, uncomplicated; Z82.49 Family history of ischemic heart disease and other diseases of the circulatory system; Z83.3 Family history of diabetes mellitus; Z95.828 Presence of other vascular implants and grafts; Z79.4 Long term (current) use of insulin; Z79.01 Long term (current) use of anticoagulants; Z86.73 Personal history of transient ischemic attack (TIA), and cerebral infarction without residual deficits; Z99.2 Dependence on renal dialysis; Z95.5 Presence of coronary angioplasty implant and graft
CPT/HCPCS: 36415; 51702; 70450; 70551; 71010; 80048; 80053; 80320; 82140; 82728; 82962; 83550; 83735; 83880; 84100; 84443; 85025; 85610; 87040; 90686; 90732; 93005; 93010; 93925; 94640; 94760; 96374; 96375; G0480; J1756; J1818; J1953; J1956; J2060; J2270; J7030

== ENCOUNTER 2016-11-04 03:55 | Emergency (ER) | payer MEDICARE ==
[2016-11-04] MEDS ORDERED: MORPHINE IM ONE (05:14)
[2016-11-04] MEDS ORDERED: ZOFRAN IM ONE (05:15)
[2016-11-04] MEDS ORDERED: ZOFRAN PO ONE (05:19)
[2016-11-04] MEDS ORDERED: ZOFRAN ODT ONE (05:25)
[2016-11-04] MEDS ORDERED: ZOFRAN ODT PO ONE (05:37)
[2016-11-04 05:52] LABS: INR 1.73 (0.87-1.13)
[2016-11-04 05:53] LABS: Partial Thromboplastin Time 40.3 Sec. (24.2-36.6)
[2016-11-04 05:54] LABS: Basophils % (Auto) 1.3 % (0.0-1.8); Eosinophils % (Auto) 3.8 % (0.0-4.3); Hematocrit 30.2 % (30.3-42.9); Hemoglobin 9.7 gm/dl (10.1-14.3); Mean Corpuscular HGB Conc 32 % (30-34); Mean Corpuscular Hemoglobin 32 pg (28-32); Mean Corpuscular Volume 100 fl (79-97); Platelet Count 159 K/mm3 (140-440); Red Blood Count 3.01 M/mm3 (3.65-5.03); White Blood Count 8.6 K/mm3 (4.5-11.0)
[2016-11-04 05:56] LABS: Albumin 3.1 g/dL (3.9-5); Alkaline Phosphatase 106 units/L (35-129); Anion Gap 19 mmol/L; BUN/Creatinine Ratio 5.45; Blood Urea Nitrogen 12 mg/dL (7-17); Calcium 7.2 mg/dL (8.4-10.2); Carbon Dioxide 28 mmol/L (22-30); Glucose 215 mg/dL (65-100); Potassium 4.3 mmol/L (3.6-5.0); Sodium 131 mmol/L (137-145); Total Protein 6.3 g/dL (6.3-8.2)
[2016-11-04 05:57] LABS: Alanine Aminotransferase < 5 units/L (7-56)
[2016-11-04 06:03] LABS: Red Cell Distribution Width 22.4 % (13.2-15.2)
--- NOTE | 2016-11-04 06:30 | Emergency Department Report ---
ED Abdominal Pain HPI - General Chief Complaint: Abdominal Pain Stated Complaint: GENERAL ILLNESS Time Seen by Provider: 11/04/16 06:19 Source: patient, EMS Mode of arrival: Stretcher Limitations: Physical Limitation - History of Present Illness Initial Comments: 81-year-old female presents to the emergency department via EMS complaining of abdominal pain, bright red blood per rectum, and pain in her right leg. Abdominal pain began yesterday. She describes aching pain in her lower abdomen. Pain is constant and does not radiate. She reports normal bowel movements, but bright red blood was also noted. There has been no nausea or vomiting. 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 She is complaining of pain at the site. Patient normally receives dialysis on Tuesday, Tuesday, and Tuesday. She was dialyzed yesterday, and has not missed a treatment. There are no other complaints. MD Complaint: abdominal pain -: Gradual, days(s) (1) Location: suprapubic Radiation: none Migration to: no migration Severity: severe Severity scale (0 -10): 10 Quality: aching Consistency: constant Improves With: nothing Worsens With: nothing Associated Symptoms: hematochezia - Related Data Home Medications Medication Instructions Recorded Confirmed Last Taken Apixaban [Eliquis] 5 mg PO DAILY 04/20/16 06/29/16 06/29/16 Carvedilol 6.25 mg PO BID 04/20/16 06/29/16 06/29/16 Cinacalcet HCl [Sensipar] 30 mg PO DAILY 04/20/16 06/29/16 06/29/16 Clopidogrel Bisulfate [Clopidogrel] 75 mg PO DAILY 04/20/16 06/29/16 06/29/16 Gabapentin [Neurontin] 300 mg PO DAILY 04/20/16 06/29/16 06/29/16 Insulin Glargine [Lantus VIAL] 15 units SC DAILY 04/20/16 06/29/16 06/29/16 Simvastatin 40 mg PO QHS 04/20/16 06/29/16 06/29/16 Vitamin B Comp and C/FA/Zn Cit 1 tab PO DAILY 04/20/16 06/29/16 06/29/16 [Dialyvite 800-Zinc 15 mg Tab] Sitagliptin Phosphate [Januvia] 25 mg PO QDAY 05/20/16 06/29/16 06/29/16 Previous Rx's Medication Instructions Recorded Last Taken Type Lisinopril [Zestril TAB] 2.5 mg PO QDAY #30 tab 06/04/16 06/29/16 Rx Docusate Sodium [Colace CAP] 100 mg PO BID capsule 07/30/16 Unknown Rx levETIRAcetam [Keppra TAB] 500 mg PO BID #60 tablet 07/30/16 Unknown Rx HYDROcodone/APAP 7.5-325 [[place] 1 each PO Q6HR PRN #60 tablet 11/04/16 Unknown Rx 7.5-325 mg TAB] Allergies Allergy/AdvReac Type Severity Reaction Status Date / Time No Known Allergies Allergy Verified 06/20/16 19:58 ED Review of Systems ROS: Stated complaint: GENERAL ILLNESS Other details as noted in HPI Comment: All other systems reviewed and negative Gastrointestinal: abdominal pain, hematochezia Musculoskeletal: as per HPI, other (right stump pain) ED Past Medical Hx - Past Medical History Previous Medical History?: Yes Hx Hypertension: Yes (CHF) Hx Heart Attack/AMI: Yes (2005. 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, hypercholesterolemia, chronic pain - Surgical History Past Surgical History?: Yes Hx Coronary Stent: Yes (3 stents, PTCA) Hx Pacemaker: No Additional Surgical History: R AKA - Family History Family history: no significant - Social History Smoking Status: Unknown if ever smoked Substance Use Type: None - Medications Home Medications: Home Medications Medication Instructions Recorded Confirmed Last Taken Type Apixaban [Eliquis] 5 mg PO DAILY 04/20/16 06/29/16 06/29/16 History Carvedilol 6.25 mg PO BID 04/20/16 06/29/16 06/29/16 History Cinacalcet HCl [Sensipar] 30 mg PO DAILY 04/20/16 06/29/16 06/29/16 History Clopidogrel Bisulfate [Clopidogrel] 75 mg PO DAILY 04/20/16 06/29/16 06/29/16 History Gabapentin [Neurontin] 300 mg PO DAILY 04/20/16 06/29/1606/29/17 History Insulin Glargine [Lantus VIAL] 15 units SC DAILY 04/20/16 06/29/16 06/29/16 History Simvastatin 40 mg PO QHS 04/20/16 06/29/16 06/29/16 History Vitamin B Comp and C/FA/Zn Cit 1 tab PO DAILY 04/20/16 06/29/16 06/29/16 History [Dialyvite 800-Zinc 15 mg Tab] Sitagliptin Phosphate [Januvia] 25 mg PO QDAY 05/20/16 06/29/16 06/29/16 History Lisinopril [Zestril TAB] 2.5 mg PO QDAY #30 tab 06/04/16 06/29/16 06/29/16 Rx Docusate Sodium [Colace CAP] 100 mg PO BID capsule 07/30/16 Unknown Rx levETIRAcetam [Keppra TAB] 500 mg PO BID #60 tablet 07/30/16 Unknown Rx HYDROcodone/APAP 7.5-325 [[place] 1 each PO Q6HR PRN #60 tablet 11/04/16 Unknown Rx 7.5-325 mg TAB] ED Physical Exam - General Limitations: Physical Limitation General appearance: alert, in no apparent distress - Head Head exam: Present: atraumatic, normocephalic - Eye Eye exam: Present: normal appearance, PERRL, EOMI - ENT ENT exam: Present: normal exam, normal orophraynx, mucous membranes moist - Neck Neck exam: Present: normal inspection, full ROM. Absent: tenderness - Respiratory Respiratory exam: Present: normal lung sounds bilaterally. Absent: respiratory distress - Cardiovascular Cardiovascular Exam: Present: regular rate, normal rhythm, normal heart sounds - GI/Abdominal GI/Abdominal exam: Present: soft, normal bowel sounds. Absent: distended, tenderness - Extremities Exam Extremities exam: Present: full ROM. Absent: normal inspection (Pt is s/p R AKA. Dressing intact. No bleeding noted.), tenderness - Back Exam Back exam: Present: normal inspection, full ROM. Absent: tenderness - Neurological Exam Neurological exam: Present: alert, oriented X3. Absent: motor sensory deficit - Skin Skin exam: Present: warm, dry, intact ED Course Vital Signs 11/04/16 11/04/16 11/04/16 04:47 05:34 06:58 Temperature 98.3 F Pulse Rate 97 H Respiratory 20 18 Rate Blood Pressure [Left] O2 Sat by Pulse 100 100 Oximetry 11/04/16 11/04/16 07:38 07:53 Temperature 97.4 F L Pulse Rate 91 H 90 Respiratory 20 16 Rate Blood Pressure 157/87 157/67 [Left] O2 Sat by Pulse 100 95 Oximetry ED Medical Decision Making - Lab Data Result diagrams: 11/04/16 05:23 11/04/16 05:23 - Radiology Data Radiology results: report reviewed CT of the abdomen and pelvis was discussed with the radiologist. Cardiomegaly is noted. Bilateral pleural effusions are also noted. There is also some ascites and degenerative changes of the lumbar spine. There is no acute abnormality noted. - Medical Decision Making Laboratory results reviewed and discussed with the patient. Patient has received IM morphine for pain, and states this is greatly helped. She is not requesting anything of this time. Due to abdominal pain and blood in her stools , obtaining CT scan of the abdomen and pelvis. 0840--imaging results reviewed and discussed with the radiologist. I've also spoken with Dr. Kline, patient's primary doctor at the half-way. Patient will be discharged back to the half-way at this time. - Differential Diagnosis abdominal pain, diverticulosis, anemia Critical care attestation.: If time is entered above; I have spent that time in minutes in the direct care of this critically ill patient, excluding procedure time. ED Disposition Clinical Impression: Right leg pain, Hematochezia Disposition: DC/TX ANOTHER TYPE HEALTHCARE Is pt being admited?: No Condition: Stable Instructions: Abdominal Pain (ED) Prescriptions: HYDROcodone/APAP 7.5-325 [[place] 7.5-325 mg TAB] 1 each PO Q6HR PRN #60 tablet PRN Reason: Pain Referrals: ALEKSANDRA KLINE MD [Staff Physician] - 3-5 Days Time of Disposition: 08:43
[2016-11-04 07:54] VITALS: BP 157/67
--- NOTE | 2016-11-04 08:00 | Cat Scan Report ---
CT ABDOMEN AND PELVIS WITHOUT CONTRAST INDICATION: Lower abdominal pain. COMPARISON: None similar. FINDINGS: Noncontrast abdomen and pelvis CT performed. LUNG BASES: Moderate cardiomegaly. Anemia not excluded. Extensive aortic and coronary atherosclerotic calcifications. [id number] bilateral pleural effusions, right greater than left with underlying lower lobe consolidation/atelectasis. Slight nonspecific distal esophageal prominence/thickening also not excluded. ABDOMEN: Please note that sensitivity to detect small visceral lesions is limited due to the absence of intravenous or oral contrast. Minimal perihepatic ascites. Subtle left hepatic lobe surface nodularity questioned. Otherwise grossly unremarkable unenhanced liver, spleen, gallbladder, pancreas and IVC. Nonaneurysmal abdominal aorta with extensive atherosclerotic aortoiliac and other branch calcifications. Atrophic kidneys with innumerable predominantly hypodense cysts, the largest approximately 2 cm interpolar on the right while the largest partly exophytic left interpolar simple cyst is 5.7 cm. Few small left paraaortic lymph nodes measure up to 1.3 x 1 cm, axial image 155, series 2. Nonopacified GI tract evaluation limited, though nonobstructive. Stomach not distended with diffuse exaggerated wall thickness. Cecum somewhat low lying in the right hemipelvis. Moderate ascending and transverse colon stool/possible constipation. PELVIS: Small pelvic simple free fluid. Rectosigmoid stool. Non-opacified urinary bladder suboptimally distended and assessed. Grossly unremarkable uterus and adnexa. Numerous vascular calcifications noted. Extensive diffuse subcutaneous edema noted, right more than left. Mild to moderate lumbar dextroscoliosis apex about L3. Severe L3-L4 disc obliteration with adjacent endplate irregularities/lucencies and sclerosis noted in the adjacent L3 and L4 vertebral bodies. Moderate diffuse disc bulge at L3-L4 also suspected with moderate to severe spinal stenosis as on axial image 171, series 2. L4-L5 and L5-S1 disc degeneration with vacuum phenomenon also noted. Moderate asymmetric L2-L3 disc narrowing also seen. Multilevel degenerative spurring along the imaged lumbar and lower thoracic spine. Lower lumbar facet arthropathy. Bilateral hip degenerative changes as well. CONCLUSION: 1. Cardiomegaly, bilateral pleural effusions and bibasilar consolidation/atelectasis. 2. Extensive diffuse subcutaneous edema. 3. Minimal abdomen and pelvic ascites. Possible constipation. 4. Atrophic kidneys with multiple bilateral renal cysts. Advanced multilevel spinal degenerative changes also noted in this patient with possible renal osteodystrophy, greatest at L3-L4, as detailed above. Please correlate. I phoned the above results to Dr. Askew in the ER, 7:45 AM, 11/04/2016. Thank you for the opportunity to participate in this patient's care.
== END 2016-11-04 10:05 | disposition other institution (70) ==
LOC: ED 03:55
DX: K92.1 Melena (principal); M79.604 Pain in right leg; I10 Essential (primary) hypertension; I25.2 Old myocardial infarction; I50.9 Heart failure, unspecified; E11.9 Type 2 diabetes mellitus without complications; G89.29 Other chronic pain; E78.00 Pure hypercholesterolemia, unspecified; Z79.4 Long term (current) use of insulin
CPT/HCPCS: 36415; 74176; 80053; 85025; 85610; 85730; 96372; 99284; J2270; Q0162